=== PATIENT | female | born 1935 | race Caucasian/White ===

== ENCOUNTER 2024-02-28 10:29 | Outpatient (AMB) | payer MEDICARE, SELFPAY ==
--- NOTE | 2024-02-28 09:30 | MHC.PC.OV ---
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 Intake Note: patient here for new patient visit Wholesaler Required: No Is last menstrual period known: No Post menopausal: No Patient : No Allergies bactrum Allergy (Mild, Uncoded 02/28/24 10:41) Unknown losartan Adverse Reaction (Intermediate, Uncoded 02/28/24 10:54) hyperkalemia Tobacco use date assessed: 02/28/24 Fall risk assessment: No Falls in past year Last assessed Fall Risk: 02/28/24 Dental Screening Dental Screen Date: 02/28/24 Did you have a dental visit in the last 12 months?: Yes Did you have a dental problem in the last 6 months where you did not have access to dental care?: No Was dental information given to patient?: Patient has dentist HPI HPI Comments History of Present Illness Details This is an 88-year-old female with a past medical history of invasive ductal carcinoma of the right breast, bilateral PE and left calf DVT anticoagulated on apixaban, hypertension, hyperlipidemia, CKD stage IIIB, peripheral neuropathy, insomnia and glaucoma presenting for follow up. She transferred from my panel at [facility] primary care. The patient was seen at [facility] on 02/20/2024. She presented with left upper extremity pressure in the setting of elevated blood pressure. She had reported some pressure and weakness in her left upper extremity, but at the time her blood pressure was also elevated in the 180s. She got worried and came to the emergency room. The symptoms in her left arm resolved. Notes indicate no EKG changes and no chest pain. Hyperkalemia was reversed with Lokelma. Losartan discontinued, and she was placed on amlodipine. Patient says her smart watch alerted her to a dangerously high heart rate which she would've ignored, but then she checked her blood pressure, and it was elevated in the 180s. Denies paplpitations, chest pain or shortness of breath. She had an echo done at [facility] in June 2023, but she never received the results. This office will request it. 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 Rushing. She is to continue anticoagulation indefinitely. She had right breast cancer in 2018. No known recurrence. Insomnia was treated with trazodone, and she did not tolerate side effects. She does well on Ambien. She sleeps 8-9 hours per night. No side effects to this medication. I reviewed her blood pressure log from home. Her blood pressures have been improving since switching to amlodipine. BP was 129/77 at home today at 7:48am. ROS: Constitutional: No unexplained weight loss, fever, chills, fatigue or night sweats. Eyes: No vision changes, blurry vision, double vision. Respiratory: No shortness of breath, cough or sputum production. Cardiovascular: No chest pain, chest pressure or chest discomfort. No palpitations or pedal edema. Gastrointestinal: No anorexia, nausea, vomiting or diarrhea. No abdominal pain or blood in stool. Genitourinary: No dysuria, hematuria, urinary frequency. Neurologic: No headache, dizziness, syncope, unilateral weakness, ataxia, numbness or tingling in the extremities. Physical exam: Constitutional: Alert, in no distress. Head: Normocephalic. Neck: Supple, Full range of motion. No lymphadenopathy. No palpable thyroid masses. Respiratory: Clear to auscultation. Cardiovascular: S1 S2 regular. No murmurs. Extremities: Warm and well perfused. No clubbing, cyanosis or edema. Psychiatric: Normal mood and affect [facility] Medical History (Updated 02/28/24 @ 11:40 by LYNNE Louis) Hyperkalemia Tachycardia Transient cerebral ischemia Restless legs Postherpetic neuralgia Osteopenia Osteoarthritis Multiple nodules of lung Mitral valve regurgitation Lumbar radiculopathy Insomnia HTN (hypertension) Hyperlipidemia History of DVT of lower extremity Glaucoma Dust allergy Chronic kidney disease, stage 3b Breast cancer, right Atrial septal aneurysm Arthritis Acute pulmonary embolism Surgical History (Updated 02/28/24 @ 11:38 by LYNNE Louis) History of cataract surgery History of hysterectomy History of tonsillectomy History of left hip replacement History of left knee replacement History of lumpectomy of right breast History of right hip replacement History of right knee joint replacement Social History Housing: House Patient Tobacco Use Status: Never used Tobacco e-Cigarette/Vaping Use: Never Used Second Hand Smoke Exposure: No service: No Current occupational status: retired Current occupational exposures/hazards: No Cognitive needs: No Hearing needs: No Vision needs: Yes Questionnaire PHQ-9 Over the last 2 weeks, how often have you been bothered by any of the following problems? 1. Little interest or pleasure in doing things: not at all 2. Feeling down, depressed, or hopeless: not at all 3. Trouble falling or staying asleep, or sleeping too much: several days 4. Feeling tired or having little energy: several days 5. Poor appetite or overeating: not at all 6. Feeling bad about yourself - or that you are a failure or have let yourself or your family down: not at all 7. Trouble concentrating on things, such as reading the newspaper or watching television: not at all 8. Moving or speaking so slowly that other people could have noticed. Or the opposite - being so fidgety or restless that you have been moving around a lot more than usual: not at all 9. Thoughts that you would be better off or of hurting yourself in some way: not at all Total score: 2 90675 - PHQ-9 Billing: Yes Source: Developed by Drs. Israel Perez, Lexi Garcia, Tyrone Valentine and colleagues, with an educational eros from [employer]. Thrive Questionnaire Date Thrive assessed: 02/28/24 I am a: Patient What is your living situation today?: I have a steady place to live Within the past 12 months, did the food you bought not last and you didn't have the money to get more?: Never true Within the past 12 months, did you worry whether your food would run out before you got money to buy more?: Never true Do you have trouble paying for medicines?: No Do you have trouble getting transportation to medical appointments?: No Do you have trouble paying your heating and electricity bill?: No Do you have trouble taking care of your child, family member or friend?: No Do you have trouble with day-to-day activities such as bathing, preparing meals, shopping, managing finances, etc.?: No Are you currently unemployed and looking for a job?: No Are you interested in more education?: No Please select the resources that you would like help with: None Currently or been in a relationship where the following occur: No concerns reported THRIVE Score: 0 AUDIT C Alcohol Use Questionnaire (AUDIT-C) 1. How often do you have a drink containing alcohol?: 2-4 times a month 2. How many drinks containing alcohol do you have on a typical day when you are drinking?: 1 or 2 3. How often do you have six or more drinks on one occasion?: Never Total Score: 2 Score Reviewed/Action Taken: Yes SAÚL-7 AMB Questionnaire SAÚL-7 Date SAÚL - 7 assessed: 02/28/24 Feeling nervous, anxious, or on edge: 0 = Not at all Not being able to stop or control worryin = Not at all Worrying too much about different things: 0 = Not at all Trouble relaxin = Not at all Being so restless that it is hard to sit still: 0 = Not at all Becoming easily annoyed or irritable: 0 = Not at all Feeling afraid as if something awful might happen: 0 = Not at all Total SAÚL-7 score (0-4 normal; 5-9 mild; 10-14 moderate; 15-21 severe): 0 Source: Developed by Drs. Israel Perez, Lexi Garcia, Tyrone Valentine and colleagues, with an educational eros from [employer]. SAÚL-7 Assessment Billing SAÚL-7 Assessment Tool: SAÚL-7 Assessment 24989 Physical exam (Primary Care) Vital Signs: Last Vital Signs Temp 97.5 F 02/28/24 10:49 Pulse 87 02/28/24 10:49 Resp 16 02/28/24 10:49 BP 134/66 02/28/24 10:49 Pulse Ox 97 02/28/24 10:49 Oxygen Delivery Method Room Air 02/28/24 10:49 BMI result Body Mass Index 25.9 Tobacco/Smoking Status: Tobacco use Status Tobacco use date assessed 02/28/24 02/28/24 10:49 Patient Tobacco Use Status Never used Tobacco 02/28/24 10:49 e-Cigarette/Vaping Use Never Used 02/28/24 10:49 PHQ-9: PHQ-9 Score PHQ-9: Total score 2 02/28/24 10:59 Thrive Assessment: Date of Thrive Assessment Date Thrive assessed 02/28/24 02/28/24 10:59 Currently or been in a relationship where the following occur: No concerns reported Coding Level of Care Code Est Pt Level 5 (99708) Complex EM visit Add On G2211 Diagnoses Primary hypertension I10 Hypertension type: primary hypertension History of pulmonary embolism Z86.711 Tachycardia R00.0 Hyperkalemia E87.5 Insomnia G47.00 Hyperlipidemia E78.5 Additional Codes SAÚL-7 Assessment Billing - SAÚL-7 Assessment Tool: SAÚL-7 Assessment [id number] ([id number]) Time Spent (min) 53 Comment Reviewing and updating the medical records, direct patient care, documentation Assessment & Plan Assessment & Plan (1) HTN (hypertension): Code(s): I10 - Essential (primary) hypertension Category: Medical Qualifiers: Hypertension type: primary hypertension Qualified Code(s): I10 - Essential (primary) hypertension Plan: Hypertension Continue amlodipine 10 mg daily. Blood pressure at goal. (2) History of pulmonary embolism: Code(s): Z86.711 - Personal history of pulmonary embolism Category: Medical Plan: Continue Eliquis. Continue anticoagulation indefinitely. (3) Tachycardia: Code(s): R00.0 - Tachycardia, unspecified Category: Medical Plan: Patient says her watch his only recorded 1 such episode of tachycardia, and she did not feel palpitations. I would like her to have a 48 hour Holter monitor to check for atrial fibrillation. Patient in agreement. She would like this done at [facility]. Order faxed. Warning signs warranting re-evaluation at emergency department reviewed. (4) Hyperkalemia: Code(s): E87.5 - Hyperkalemia Category: Medical Plan: Recheck potassium. Remain off losartan. (5) Insomnia: Code(s): G47.00 - Insomnia, unspecified Category: Medical Plan: Continue Ambien 5 mg nightly. (6) Hyperlipidemia: Code(s): E78.5 - Hyperlipidemia, unspecified Category: Medical Plan: Continue rosuvastatin. Plan Follow up in 8 weeks. Orders: Orders Basic Metabolic Panel Today N18.32 - Chronic kidney disease, stage 3b ECG holter monitor 48 hour Today R00.0 - Tachycardia, unspecified Medications: New amlodipine 10 mg PO DAILY 90 tabs 3RF zolpidem 5 mg PO BEDTIME PRN 30 tabs 0RF insomnia
[2024-02-28 10:49] VITALS: BP 134/66; PULSE 87; RESP 16; TEMP 36.4; O2SAT 97; BMI 25.9
== END 2024-02-28 11:30 | disposition home or self-care (01) ==
PROVIDERS: PCP Physician Assistant Medical; Visit Provider Physician Assistant Medical
DX: I10 Essential (primary) hypertension (principal); Z86.711 Personal history of pulmonary embolism; R00.0 Tachycardia, unspecified; E87.5 Hyperkalemia; G47.00 Insomnia, unspecified; E78.5 Hyperlipidemia, unspecified

== ENCOUNTER → 2024-02-28 10:29 | Outpatient (BNVA) | payer MEDICARE, SELFPAY | PROVIDERS: PCP Physician Assistant Medical; Visit Provider Physician Assistant Medical ==

== ENCOUNTER 2024-02-28 11:37 | Outpatient (REF) | payer MEDICARE, SELFPAY ==
[2024-02-28 14:30] LABS: Anion Gap 11 (12-20); Blood Urea Nitrogen 19 mg/dL (9-16); Calcium 10.5 mg/dL (8.4-10.2); Carbon Dioxide 22 mmol/L (22-29); Chloride 111 mmol/L (96-108); Estimated Glomerular Filt Rate 53; Glucose Random 99 mg/dL (60-115); Potassium 4.4 mmol/L (3.3-5.1); Sodium 140 mmol/L (135-145)
== END 2024-02-28 11:38 | disposition home or self-care (01) ==
LOC: HO.WFDLDS 11:37
PROVIDERS: Visit Provider Physician Assistant Medical
DX: I12.9 Hypertensive chronic kidney disease with stage 1 through stage 4 chronic kidney disease, or unspecified chronic kidney disease (principal); N18.32 Chronic kidney disease, stage 3b; R00.0 Tachycardia, unspecified; E87.5 Hyperkalemia; G47.00 Insomnia, unspecified; E78.5 Hyperlipidemia, unspecified; Z86.711 Personal history of pulmonary embolism; Z79.01 Long term (current) use of anticoagulants; Z79.899 Other long term (current) drug therapy
CPT/HCPCS: 36415; 80048; 96127; 99212

== ENCOUNTER 2024-03-31 14:24 | Outpatient (AMB) | payer MEDICARE, SELFPAY ==
--- NOTE | 2024-03-31 14:49 | MHC.PC.OV ---
Vital Signs 03/31/24 14:53 Height 5 ft 7 in Weight 164 lb BMI 25.7 BP 136/72 Blood Pressure Location Lt brachial Position Sitting Pulse 69 Pulse Source Pulse Oximeter Pulse Oximetry (%) 99 Oxygen Delivery Method Room Air Intake Visit Reasons: Both feet swollen Intake Note: Bilateral leg swelling for a week or more. More on the left. Allergies bactrum Allergy (Mild, Uncoded 03/31/24 14:50) Unknown losartan Adverse Reaction (Intermediate, Uncoded 03/31/24 14:50) hyperkalemia Tobacco use date assessed: 02/28/24 Fall risk assessment: No Falls in past year Last assessed Fall Risk: 03/31/24 Dental Screening Dental Screen Date: 02/28/24 HPI HPI Comments History of Present Illness Details This is an 88-year-old female with a past medical history of invasive ductal carcinoma of the right breast, bilateral PE and left calf DVT anticoagulated on apixaban, hypertension, hyperlipidemia, CKD stage IIIB, peripheral neuropathy, insomnia and glaucoma presenting for lower extremity swelling. The patient says she thinks the amlodipine that she started at the end of January is causing swelling in her feet and lower legs. She has noticed it more within the past week and a half. It is not painful except in the morning it feels uncomfortable and sometimes throbs. She says it looks the same on both sides. She is drinking a lot of water. She follows a sodium restricted diet. She is trying to elevate her legs. She has no calf pain/redness. She has been taking her Eliquis every day as prescribed. She denies chest pain, cough or shortness of breath. There is some bruising for the last week on her left lower leg. It is not painful. She thinks she may have bumped it in bed. It is fading. As you recall she was seen at [facility] on 02/20/2024. She presented with left upper extremity pressure in the setting of elevated blood pressure. She had reported some pressure and weakness in her left upper extremity, but at the time her blood pressure was also elevated in the 180s. Notes indicate dno EKG changes and no chest pain. She was found to be hyperkalemic which was reversed with Lokelma. Losartan discontinued, and she was placed on amlodipine. Patient was previously on a thiazide diuretic which was discontinued when blood pressure was well-controlled. Patient had an echocardiogram done at [facility] in June of 2023 which demonstrated a normal ejection fraction of 60-65% and indeterminate diastolic function. 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 Rushing. She is to continue anticoagulation indefinitely. She had right breast cancer in 2018. No known recurrence. Insomnia was treated with trazodone, and she did not tolerate side effects. She does well on Ambien. She sleeps 8-9 hours per night. No side effects to this medication. ROS: Constitutional: No unexplained weight loss, fever, chills, fatigue or night sweats. Eyes: No vision changes, blurry vision, double vision. Respiratory: No shortness of breath, cough or sputum production. Cardiovascular: No chest pain, chest pressure or chest discomfort. No palpitations. Gastrointestinal: No anorexia, nausea, vomiting or diarrhea. No abdominal pain or blood in stool. Genitourinary: No dysuria, hematuria, urinary frequency. Neurologic: No headache, dizziness, syncope, unilateral weakness, ataxia, numbness or tingling in the extremities. Physical exam: Constitutional: Alert, in no distress. Head: Normocephalic. Neck: Supple, Full range of motion. No lymphadenopathy. No palpable thyroid masses. Respiratory: Clear to auscultation. Cardiovascular: S1 S2 regular. No murmurs. Extremities: No clubbing or cyanosis. DP pulses palpable bilaterally. The feet are neurovascularly intact. Patient has 1+ bilateral edema of the toes and ankles and pretibial areas. On the left anteromedial aspect of the lower chiu there is a large area of fading ecchymosis and slight erythema both of which have been improving over the course of the past week per patient. No calor. There is a small 1 cm dry area on the left lower leg. Psychiatric: Normal mood and affect [facility] Medical History (Updated 03/31/24 @ 16:56 by LYNNE Louis) Bilateral lower extremity edema Serum calcium elevated Hyperkalemia Tachycardia Transient cerebral ischemia Restless legs Postherpetic neuralgia Osteopenia Osteoarthritis Multiple nodules of lung Mitral valve regurgitation Lumbar radiculopathy Insomnia HTN (hypertension) Hyperlipidemia History of DVT of lower extremity Glaucoma Dust allergy Chronic kidney disease, stage 3b Breast cancer, right Atrial septal aneurysm Arthritis Acute pulmonary embolism Surgical History (Updated 02/28/24 @ 11:38 by LYNNE Louis) History of cataract surgery History of hysterectomy History of tonsillectomy History of left hip replacement History of left knee replacement History of lumpectomy of right breast History of right hip replacement History of right knee joint replacement Social History Housing: House Patient Tobacco Use Status: Never used Tobacco e-Cigarette/Vaping Use: Never Used Second Hand Smoke Exposure: No service: No Current occupational status: retired Current occupational exposures/hazards: No Cognitive needs: No Hearing needs: No Vision needs: Yes Questionnaire PHQ-9 Over the last 2 weeks, how often have you been bothered by any of the following problems? 1. Little interest or pleasure in doing things: not at all 2. Feeling down, depressed, or hopeless: not at all 3. Trouble falling or staying asleep, or sleeping too much: not at all 4. Feeling tired or having little energy: several days 5. Poor appetite or overeating: not at all 6. Feeling bad about yourself - or that you are a failure or have let yourself or your family down: not at all 7. Trouble concentrating on things, such as reading the newspaper or watching television: not at all 8. Moving or speaking so slowly that other people could have noticed. Or the opposite - being so fidgety or restless that you have been moving around a lot more than usual: not at all 9. Thoughts that you would be better off or of hurting yourself in some way: not at all Total score: 1 Source: Developed by Drs. Israel Perez, Lexi Garcia, Tyrone Valentine and colleagues, with an educational eros from [email or web address]. Thrive Questionnaire Date Thrive assessed: 02/28/24 I am a: Patient What is your living situation today?: I have a steady place to live Within the past 12 months, did the food you bought not last and you didn't have the money to get more?: Never true Within the past 12 months, did you worry whether your food would run out before you got money to buy more?: Never true Do you have trouble paying for medicines?: No Do you have trouble getting transportation to medical appointments?: No Do you have trouble paying your heating and electricity bill?: No Do you have trouble taking care of your child, family member or friend?: No Do you have trouble with day-to-day activities such as bathing, preparing meals, shopping, managing finances, etc.?: No Are you currently unemployed and looking for a job?: No Are you interested in more education?: No Please select the resources that you would like help with: None Currently or been in a relationship where the following occur: No concerns reported THRIVE Score: 0 AUDIT C Alcohol Use Questionnaire (AUDIT-C) 1. How often do you have a drink containing alcohol?: Monthly or less 2. How many drinks containing alcohol do you have on a typical day when you are drinking?: 1 or 2 3. How often do you have six or more drinks on one occasion?: Never Total Score: 1 SAÚL-7 AMB Questionnaire SAÚL-7 Date SAÚL - 7 assessed: 02/28/24 Feeling nervous, anxious, or on edge: 0 = Not at all Not being able to stop or control worryin = Not at all Worrying too much about different things: 0 = Not at all Trouble relaxin = Not at all Being so restless that it is hard to sit still: 0 = Not at all Becoming easily annoyed or irritable: 0 = Not at all Feeling afraid as if something awful might happen: 0 = Not at all Total SAÚL-7 score (0-4 normal; 5-9 mild; 10-14 moderate; 15-21 severe): 0 Source: Developed by Drs. Israel Perez, Lexi Garcia, Tyrone Valentine and colleagues, with an educational eros from [email or web address]. Physical exam (Primary Care) Vital Signs: Last Vital Signs Pulse 69 03/31/24 14:53 BP 136/72 03/31/24 14:53 Pulse Ox 99 03/31/24 14:53 Oxygen Delivery Method Room Air 03/31/24 14:53 BMI result Body Mass Index 25.7 Tobacco/Smoking Status: Tobacco use Status Tobacco use date assessed 02/28/24 03/31/24 14:54 Patient Tobacco Use Status Never used Tobacco 03/31/24 14:54 e-Cigarette/Vaping Use Never Used 03/31/24 14:54 PHQ-9: PHQ-9 Score PHQ-9: Total score 1 03/31/24 14:54 Thrive Assessment: Date of Thrive Assessment Date Thrive assessed 02/28/24 03/31/24 14:54 Currently or been in a relationship where the following occur: No concerns reported Coding Level of Care Code Est Pt Level 4 (09233) Complex EM visit Add On G2211 Diagnoses Chronic kidney disease, stage 3b N18.32 Bilateral lower extremity edema R60.0 Serum calcium elevated E83.52 Assessment & Plan Assessment & Plan (1) Chronic kidney disease, stage 3b: Code(s): N18.32 - Chronic kidney disease, stage 3b Category: Medical (2) Bilateral lower extremity edema: Code(s): R60.0 - Localized edema Category: Medical (3) Serum calcium elevated: Code(s): E83.52 - Hypercalcemia Category: Medical Plan The patient's lungs are clear and she has no cardiopulmonary symptoms to suggest CHF. Echo within the last year demonstrated normal left ventricular ejection fraction. Symptoms are bilateral, there is no calf pain or redness, and she states she has been 100% compliant with Eliquis therefore lower extremity DVT very unlikely. Patient says this has occurred since starting amlodipine, and lower extremity is a known side effect of the medication. Recommended elevating extremities, following a low-sodium diet and she can use compression stockings. Patient may have some venous insufficiency as well. She had mild hypercalcemia with last labs. I will have her repeat renal function and calcium today. We discussed decreasing amlodipine to 5 mg from 10 mg and adding chlorthalidone depending on lab results. If she has persistent hypercalcemia we could also decrease amlodipine and add a low-dose beta tom. Side effects of beta-blockers reviewed. I will follow up with her tomorrow once I have the results. I will also check vitamin-D and PTH given previously elevated calcium level. Warning signs warranting ER evaluation reviewed with the patient. She verbalizes understanding. Orders: Orders Basic Metabolic Panel Today E83.52 - Hypercalcemia Medications: New rosuvastatin 10 mg PO DAILY 90 tabs 3RF
[2024-03-31 14:53] VITALS: BP 136/72; PULSE 69; O2SAT 99; BMI 25.7
== END 2024-03-31 16:52 | disposition home or self-care (01) ==
LOC: HO.HMCFM 14:25
PROVIDERS: PCP Physician Assistant Medical; Visit Provider Physician Assistant Medical
DX: N18.32 Chronic kidney disease, stage 3b (principal); R60.0 Localized edema; E83.52 Hypercalcemia

== ENCOUNTER 2024-03-31 15:34 | Outpatient (REF) | payer MEDICARE, SELFPAY ==
[2024-03-31 18:25] LABS: Anion Gap 14 (12-20); Blood Urea Nitrogen 16 mg/dL (9-16); Calcium 9.9 mg/dL (8.4-10.2); Carbon Dioxide 22 mmol/L (22-29); Chloride 111 mmol/L (96-108); Estimated Glomerular Filt Rate 42; Glucose Random 98 mg/dL (60-115); Potassium 4.1 mmol/L (3.3-5.1); Sodium 143 mmol/L (135-145)
[2024-04-01 05:27] LABS: Parathyroid Hormone Intact 122.1 pg/mL (8.7-77.1)
[2024-04-04 18:28] LABS: VITAMIN D (1,25 OH) D3 56 pg/mL; Vit D (1,25-Dihydroxy) Total 56 pg/mL (18-72); Vitamin D (1,25 OH) D2 <8 pg/mL
== END 2024-03-31 15:35 | disposition home or self-care (01) ==
LOC: HO.WFDLDS 15:34
PROVIDERS: Visit Provider Physician Assistant Medical
DX: E83.52 Hypercalcemia (principal); N18.32 Chronic kidney disease, stage 3b; R60.0 Localized edema
CPT/HCPCS: 36415; 80048; 82652; 83970; 99212

== ENCOUNTER 2024-04-21 10:17 | Outpatient (AMB) | payer MEDICARE, SELFPAY ==
--- NOTE | 2024-04-21 10:34 | MHC.PC.OV ---
Vital Signs 04/21/24 10:37 Height 5 ft 7 in Weight 163 lb 2 oz BMI 25.5 BP 135/63 Blood Pressure Location Rt brachial Position Sitting Respiration 16 Pulse 68 Pulse Source Pulse Oximeter Temp 97.2 F Temp Source Temporal Artery Scan Pulse Oximetry (%) 98 Oxygen Delivery Method Room Air Intake Visit Reasons: 8 week follow up holter monitor Intake Note: patient here for 8 wks follow up on halter monitor [employer] Required: No Is last menstrual period known: No Post menopausal: No Patient : No Allergies bactrum Allergy (Mild, Uncoded 03/31/24 14:50) Unknown losartan Adverse Reaction (Intermediate, Uncoded 03/31/24 14:50) hyperkalemia Tobacco use date assessed: 04/21/24 Fall risk assessment: No Falls in past year Last assessed Fall Risk: 04/21/24 Dental Screening Dental Screen Date: 04/21/24 Did you have a dental visit in the last 12 months?: Yes Did you have a dental problem in the last 6 months where you did not have access to dental care?: No Was dental information given to patient?: Patient has dentist HPI HPI Comments History of Present Illness Details This is an 89-year-old female with a past medical history of invasive ductal carcinoma of the right breast, bilateral PE and left calf DVT anticoagulated on apixaban, hypertension, hyperlipidemia, CKD stage IIIB, peripheral neuropathy, insomnia and glaucoma presenting for follow up. Hypertension-we adjusted her medication recently. She is taking amlodipine 5 mg daily and carvedilol 3.125 mg twice daily. She denies side effects on carvedilol. The patient says her leg swelling went away after she decrease the dose of amlodipine. Patient has noticed some bruising around her ankles just today. When we looked at it it is in the exact distribution where her legs cross, and she says she sits like this frequently at home. She brought a list of her home blood pressure readings with her today: March 26 108/66 March 28 121/70 March 29 121/67 April 01 115/70 April 03 120/73 April 04 125/64 April 05 120/76 April 08 124/79 April 09 125/70 April 11 124/76 April 15 129/73 April 16 130/73 April 17 128/71 April 18 127/76 April 19 120/April 20 131/70 As you recall she was seen at [facility] on 02/20/2024. She presented with left upper extremity pressure in the setting o elevated blood pressure. She had reported some pressure and weakness in her left upper extremity, but at the time her blood pressure was also elevated in the 180s. Notes indicated no EKG changes and no chest pain. She was found to be hyperkalemic which was reversed with Lokelma. Losartan discontinued, and she was placed on amlodipine. Patient was previously on a thiazide diuretic which was discontinued when blood pressure was well-controlled. Patient had an echocardiogram done at [facility] in June of 2023 which demonstrated a normal ejection fraction of 60-65% and indeterminate diastolic function. We reviewed her lab work which showed recently elevated PTH, calcium normalized, normal vitamin-D and decreased renal function. 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 Rushing. She is to continue anticoagulation indefinitely. She had right breast cancer in 2018. No known recurrence. Insomnia was treated with trazodone, and she did not tolerate side effects. She does well on Ambien. She sleeps 8-9 hours per night. No side effects to this medication. ROS: Constitutional: No unexplained weight loss, fever, chills, fatigue or night sweats. Eyes: No vision changes, blurry vision, double vision. Respiratory: No shortness of breath, cough or sputum production. Cardiovascular: No chest pain, chest pressure or chest discomfort. No palpitations. Gastrointestinal: No anorexia, nausea, vomiting or diarrhea. No abdominal pain or blood in stool. Genitourinary: No dysuria, hematuria, urinary frequency. Neurologic: No headache, dizziness, syncope, unilateral weakness, ataxia, numbness or tingling in the extremities. Physical exam: Constitutional: Alert, in no distress. Head: Normocephalic. Neck: Supple, Full range of motion. No lymphadenopathy. No palpable thyroid masses. Respiratory: Clear to auscultation. Cardiovascular: S1 S2 regular. No murmurs. Extremities: No clubbing or cyanosis. DP pulses palpable bilaterally. The feet are neurovascularly intact. Trace bilateral lower extremity edema. Ecchymosis on anteromedial aspect of the right lower leg and anterior left lower chiu. [facility] Medical History (Updated 03/31/24 @ 16:56 by LYNNE Louis) Bilateral lower extremity edema Serum calcium elevated Hyperkalemia Tachycardia Transient cerebral ischemia Restless legs Postherpetic neuralgia Osteopenia Osteoarthritis Multiple nodules of lung Mitral valve regurgitation Lumbar radiculopathy Insomnia HTN (hypertension) Hyperlipidemia History of DVT of lower extremity Glaucoma Dust allergy Chronic kidney disease, stage 3b Breast cancer, right Atrial septal aneurysm Arthritis Acute pulmonary embolism Surgical History (Updated 02/28/24 @ 11:38 by LYNNE Louis) History of cataract surgery History of hysterectomy History of tonsillectomy History of left hip replacement History of left knee replacement History of lumpectomy of right breast History of right hip replacement History of right knee joint replacement Social History Housing: House Patient Tobacco Use Status: Never used Tobacco e-Cigarette/Vaping Use: Never Used Second Hand Smoke Exposure: No service: No Current occupational status: retired Current occupational exposures/hazards: No Cognitive needs: No Hearing needs: No Vision needs: Yes Questionnaire Thrive Questionnaire Date Thrive assessed: 03/31/24 I am a: Patient What is your living situation today?: I have a steady place to live Within the past 12 months, did the food you bought not last and you didn't have the money to get more?: Never true Within the past 12 months, did you worry whether your food would run out before you got money to buy more?: Never true Do you have trouble paying for medicines?: No Do you have trouble getting transportation to medical appointments?: No Do you have trouble paying your heating and electricity bill?: No Do you have trouble taking care of your child, family member or friend?: No Do you have trouble with day-to-day activities such as bathing, preparing meals, shopping, managing finances, etc.?: No Are you currently unemployed and looking for a job?: No Are you interested in more education?: No Please select the resources that you would like help with: None Currently or been in a relationship where the following occur: No concerns reported THRIVE Score: 0 SAÚL-7 AMB Questionnaire SAÚL-7 Date SAÚL - 7 assessed: 02/28/24 Source: Developed by Drs. Israel Perez, Lexi Garcia, Tyrone Valentine and colleagues, with an educational eros from [employer] Physical exam (Primary Care) Vital Signs: Last Vital Signs Temp 97.2 F 04/21/24 10:37 Pulse 68 04/21/24 10:37 Resp 16 04/21/24 10:37 BP 135/63 04/21/24 10:37 Pulse Ox 98 04/21/24 10:37 Oxygen Delivery Method Room Air 04/21/24 10:37 BMI result Body Mass Index 25.5 Tobacco/Smoking Status: Tobacco use Status Tobacco use date assessed 04/21/24 04/21/24 10:40 Patient Tobacco Use Status Never used Tobacco 04/21/24 10:36 e-Cigarette/Vaping Use Never Used 04/21/24 10:36 Thrive Assessment: Date of Thrive Assessment Date Thrive assessed 03/31/24 04/21/24 10:36 Currently or been in a relationship where the following occur: No concerns reported Coding Level of Care Code Est Pt Level 4 (02092) Complex EM visit Add On G2211 Diagnoses Chronic kidney disease, stage 3b N18.32 Bilateral lower extremity edema R60.0 Assessment & Plan Assessment & Plan (1) Chronic kidney disease, stage 3b: Code(s): N18.32 - Chronic kidney disease, stage 3b Category: Medical (2) Bilateral lower extremity edema: Code(s): R60.0 - Localized edema Category: Medical Plan Patient will continue her current regimen of carvedilol and amlodipine. Her home blood pressure readings are at goal. Patient has lower extremity edema resolved after decreasing her dose of amlodipine. We discussed easy bruising is common on anticoagulation. She will try to avoid keeping her legs crossed at the ankles to decrease bruising. Reviewed elevated PTH, previously elevated calcium level and decreased GFR with patient. I recommended nephrology/endo consult. Patient declined at this time. Patient agreeable to rechecking labs. She plans to do this after the holidays. Patient has Holter monitor pending. Warning signs warranting ER evaluation reviewed. Continue zolpidem for insomnia. Refill given. Follow up in office in 6 months. Orders: Orders Complete Blood Count Auto Diff 6 Months E78.5 - Hyperlipidemia, unspecified, E83.52 - Hypercalcemia, E87.5 - Hyperkalemia, I10 - Essential (primary) hypertension, R60.0 - Localized edema Comprehensive Met. Panel 6 Months E78.5 - Hyperlipidemia, unspecified, E83.52 - Hypercalcemia, E87.5 - Hyperkalemia, I10 - Essential (primary) hypertension, R60.0 - Localized edema Parathyroid Hormone Intact 6 Months E78.5 - Hyperlipidemia, unspecified, E83.52 - Hypercalcemia, E87.5 - Hyperkalemia, I10 - Essential (primary) hypertension, R60.0 - Localized edema Vitamin D 1,25 dihydroxy 6 Months E78.5 - Hyperlipidemia, unspecified, E83.52 - Hypercalcemia, E87.5 - Hyperkalemia, I10 - Essential (primary) hypertension, R60.0 - Localized edema Lipid Panel 6 Months E78.5 - Hyperlipidemia, unspecified, E83.52 - Hypercalcemia, E87.5 - Hyperkalemia, I10 - Essential (primary) hypertension, R60.0 - Localized edema Medications: Refilled zolpidem 5 mg PO BEDTIME PRN 30 tabs 3RF insomnia carvedilol must administer with a meal/food 3.125 mg PO BID 180 tabs 3RF
[2024-04-21 10:37] VITALS: BP 135/63; PULSE 68; RESP 16; TEMP 36.2; O2SAT 98; BMI 25.5
== END 2024-04-21 11:26 | disposition home or self-care (01) ==
PROVIDERS: PCP Physician Assistant Medical; Visit Provider Physician Assistant Medical
DX: N18.32 Chronic kidney disease, stage 3b (principal); R60.0 Localized edema

== ENCOUNTER → 2024-04-21 10:17 | Outpatient (BNVA) | payer MEDICARE, SELFPAY | PROVIDERS: PCP Physician Assistant Medical; Visit Provider Physician Assistant Medical | DX: N18.32 Chronic kidney disease, stage 3b (principal); R60.0 Localized edema | CPT/HCPCS: 99212 ==

== ENCOUNTER 2024-10-23 09:46 | Outpatient (AMB) | payer MEDICARE, SELFPAY ==
--- NOTE | 2024-10-23 09:56 | A.OFFPC_ITS ---
Vital Signs 10/23/24 10:02 Height 5 ft 7 in Weight 151 lb 8 oz BMI 23.7 BP 118/70 Blood Pressure Location Lt brachial Position Sitting Pulse 63 Pulse Source Pulse Oximeter Temp 98.4 F Temp Source Temporal Artery Scan Pulse Oximetry (%) 98 Oxygen Delivery Method Room Air Intake Visit Reasons: Follow up Halter monitor Intake Note: Oxana presents in the office today to follow up on the Holter monitor. Allergies bactrum Allergy (Mild, Uncoded 10/23/24 09:59) Unknown losartan Adverse Reaction (Intermediate, Uncoded 10/23/24 09:59) hyperkalemia Tobacco use date assessed: 10/23/24 Fall risk assessment: 2 + Falls in past year Last assessed Fall Risk: 10/23/24 Dental Screening Dental Screen Date: 10/23/24 Did you have a dental visit in the last 12 months?: Yes Did you have a dental problem in the last 6 months where you did not have access to dental care?: No Was dental information given to patient?: Patient has dentist HPI HPI Comments History of Present Illness Details This is an 89-year-old female with a past medical history of invasive ductal carcinoma of the right breast, bilateral PE and left calf DVT anticoagulated on apixaban, hypertension, hyperlipidemia, CKD stage IIIB, peripheral neuropathy, insomnia and glaucoma presenting for follow up. The patient broke her proximal right clavicle in July. CT demonstrated fracture and small hematoma but no evidence of osteolytic lesions ( ER note reviewed). She has a remote history of breast cancer. This was after a file cabinet fell on top of arm. There was no loss of consciousness. Patient followed by [facility]. She is starting physical therapy. Bone density exam was ordered, but patient says she was not called to schedule this. My medical claims analyst took care of this today by resending the order. Hypertension-she is taking amlodipine 5 mg daily and carvedilol 3.125 mg twice daily. Patient had an echocardiogram done at [facility] in June of 2023 which demonstrated a normal ejection fraction of 60-65% and indeterminate diastolic function. We reviewed her lab work Again today which showed recently elevated PTH, calcium normalized, normal vitamin-D and decreased renal function. She has orders to repeat labs. she did not have them done yet. She previously declined referral to Nephrology. 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 Rushing. She is to continue anticoagulation indefinitely. She had right breast cancer in 2018. No known recurrence. Saw Dr. Rushing for this. She has annual mammograms with [facility] on [address]. Insomnia was treated with trazodone, and she did not tolerate side effects. She does well on Ambien. She sleeps 8-9 hours per night. No side effects to this medication. ROS: Constitutional: No unexplained weight loss, fever, chills, fatigue or night sweats. Eyes: No vision changes, blurry vision, double vision. Respiratory: No shortness of breath, cough or sputum production. Cardiovascular: No chest pain, chest pressure or chest discomfort. No palpitations. Gastrointestinal: No anorexia, nausea, vomiting or diarrhea. No abdominal pain or blood in stool. Genitourinary: No dysuria, hematuria, urinary frequency. Neurologic: No headache, dizziness, syncope, unilateral weakness, ataxia, numbness or tingling in the extremities. Physical exam: Constitutional: Alert, in no distress. Head: Normocephalic. Neck: Supple, Full range of motion. No lymphadenopathy. No palpable thyroid masses. Respiratory: Clear to auscultation. Cardiovascular: S1 S2 regular. No murmurs. Clavicles: No palpable tenderness or deformity. Extremities: No clubbing or cyanosis. Trace bilateral lower extremity edema. [facility] Medical History (Updated 10/24/24 @ 10:03 by LYNNE Louis) Right clavicle fracture Bilateral lower extremity edema Serum calcium elevated Hyperkalemia Tachycardia Transient cerebral ischemia Restless legs Postherpetic neuralgia Osteopenia Osteoarthritis Multiple nodules of lung Mitral valve regurgitation Lumbar radiculopathy Insomnia HTN (hypertension) Hyperlipidemia History of DVT of lower extremity Glaucoma Dust allergy Chronic kidney disease, stage 3b Breast cancer, right Atrial septal aneurysm Arthritis Acute pulmonary embolism Surgical History (Updated 02/28/24 @ 11:38 by LYNNE Louis) History of cataract surgery History of hysterectomy History of tonsillectomy History of left hip replacement History of left knee replacement History of lumpectomy of right breast History of right hip replacement History of right knee joint replacement Social History (Updated 10/23/24 @ 10:02 by Nikki Mcgowan MA) Housing: House Alcohol intake: current Patient Tobacco Use Status: Never used Tobacco e-Cigarette/Vaping Use: Never Used Second Hand Smoke Exposure: No service: No Current occupational status: retired Current occupational exposures/hazards: No Cognitive needs: No Hearing needs: No Vision needs: Yes Questionnaire PHQ-9 Over the last 2 weeks, how often have you been bothered by any of the following problems? 1. Little interest or pleasure in doing things: not at all 2. Feeling down, depressed, or hopeless: not at all 4. Feeling tired or having little energy: not at all 5. Poor appetite or overeating: not at all 6. Feeling bad about yourself - or that you are a failure or have let yourself or your family down: not at all 7. Trouble concentrating on things, such as reading the newspaper or watching television: not at all 8. Moving or speaking so slowly that other people could have noticed. Or the opposite - being so fidgety or restless that you have been moving around a lot more than usual: not at all 9. Thoughts that you would be better off or of hurting yourself in some way: not at all Source: Developed by Drs. Israel Perez, Lexi Garcia, Tyrone Valentine and colleagues, with an educational eros from [employer]. Thrive Questionnaire Date Thrive assessed: 10/16/24 I am a: Patient What is your living situation today?: I have a steady place to live Within the past 12 months, did the food you bought not last and you didn't have the money to get more?: Never true Within the past 12 months, did you worry whether your food would run out before you got money to buy more?: Never true Do you have trouble paying for medicines?: No Do you have trouble getting transportation to medical appointments?: No Do you have trouble paying your heating and electricity bill?: I choose not to answer this question Do you have trouble taking care of your child, family member or friend?: I choose not to answer this question Do you have trouble with day-to-day activities such as bathing, preparing meals, shopping, managing finances, etc.?: No Are you currently unemployed and looking for a job?: No Are you interested in more education?: No Please select the resources that you would like help with: None Currently or been in a relationship where the following occur: I choose not to answer THRIVE Score: 0 AUDIT C Alcohol Use Questionnaire (AUDIT-C) 1. How often do you have a drink containing alcohol?: Monthly or less 2. How many drinks containing alcohol do you have on a typical day when you are drinking?: 1 or 2 3. How often do you have six or more drinks on one occasion?: Never Total Score: 1 SAÚL-7 AMB Questionnaire SAÚL-7 Date SAÚL - 7 assessed: 02/28/24 Feeling nervous, anxious, or on edge: 0 = Not at all Not being able to stop or control worryin = Not at all Worrying too much about different things: 0 = Not at all Trouble relaxin = Not at all Being so restless that it is hard to sit still: 0 = Not at all Becoming easily annoyed or irritable: 0 = Not at all Feeling afraid as if something awful might happen: 0 = Not at all Total SAÚL-7 score (0-4 normal; 5-9 mild; 10-14 moderate; 15-21 severe): 0 Source: Developed by Drs. Israel Perez, Lexi Garcia, Tyrone Valentine and colleagues, with an educational eros from [employer]. Physical exam (Primary Care) Vital Signs: Last Vital Signs Temp 98.4 F 10/23/24 10:02 Pulse 63 10/23/24 10:02 BP 118/70 10/23/24 10:02 Pulse Ox 98 10/23/24 10:02 Oxygen Delivery Method Room Air 10/23/24 10:02 BMI result Body Mass Index 23.7 Tobacco/Smoking Status: Tobacco use Status Tobacco use date assessed 10/23/24 10/23/24 10:02 Patient Tobacco Use Status Never used Tobacco 10/23/24 10:02 e-Cigarette/Vaping Use Never Used 10/23/24 10:02 Thrive Assessment: Date of Thrive Assessment Date Thrive assessed 10/16/24 10/23/24 09:58 Currently or been in a relationship where the following occur: I choose not to answer Coding Level of Care Code Est Pt Level 4 (03915) Complex EM visit Add On G2211 Diagnoses History of pulmonary embolism Z86.711 Breast cancer, right C50.911 Primary hypertension I10 Hypertension type: primary hypertension Osteopenia M85.80 Right clavicle fracture S42.001A Serum calcium elevated E83.52 Insomnia G47.00 Assessment & Plan Assessment & Plan (1) History of pulmonary embolism: Code(s): Z86.711 - Personal history of pulmonary embolism Category: Medical Plan: On anticoagulation indefinitely. (2) Breast cancer, right: Comment: Invasive ductal carcinoma Code(s): C50.911 - Malignant neoplasm of unspecified site of right female breast Category: Medical Plan: Continue annual mammograms. (3) HTN (hypertension): Code(s): I10 - Essential (primary) hypertension Category: Medical Qualifiers: Hypertension type: primary hypertension Qualified Code(s): I10 - Essential (primary) hypertension Plan: Controlled. Continue current regimen. (4) Osteopenia: Code(s): M85.80 - Other specified disorders of bone density and structure, unspecified site Category: Medical Plan: Bone density test ordered. (5) Right clavicle fracture: Code(s): S42.001A - Fracture of unspecified part of right clavicle, initial encounter for closed fracture Category: Medical Plan: She is starting physical therapy with [facility]. (6) Serum calcium elevated: Code(s): E83.52 - Hypercalcemia Category: Medical Plan: The patient was given lab orders and we fax them again to the lab of her choice. Advised patient to call the office if she does not hear about test results 1 week after having them drawn. (7) Insomnia: Code(s): G47.00 - Insomnia, unspecified Category: Medical Plan: Continue Zolpidem. Plan follow up in 4 months.
[2024-10-23 10:02] VITALS: BP 118/70; PULSE 63; TEMP 36.9; O2SAT 98; BMI 23.7
--- OUTSIDE RECORDS SUMMARY | 2024-10-23 10:07 | XMS_ITS | Data Portability ---
Author Organization [facility], PAIN OFFICE Address [address],[facility] [address] [place] [address] Care Team Providers Care Account Services Specialist Name Role Phone MALACHI WAHL Referring Provider CAITY CASTRO Primary Care Provider [phone] Assessment Encounter Date Assessment Date Assessment LastModified by Organization Details LastModified Time 09/13/2023 09/13/2023 Oxana Newell is a 88 year old woman with complaints of low back pain radiating into right lower extremity with numbness and weakness. She has had physical therapy with persistent pain. On exam, she has pain on flexion and a positive straight leg raising test on the right. MRI Lumbar spine shows multiple levels of lumbar spondylosis . Especially, L2-L3 level has a large extruded disc with inferior migration. 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 Repeat Lumbar epidural steroid injections under fluoroscopic guidance was recommended. The risks and benefits of the procedure were discussed in detail. She wishes to proceed. An appointment will be booked for the same. She needs a chassis driver on the day of the procedure. She is on eliquis and needs to stop it for three days prior to the procedure. She can stop per her PCP. [email or web address] Not available 09/13/2023 14:36:42 09/18/2023 09/18/2023 Oxana Newell is a 88 year old woman with complaints of low back pain radiating into right lower extremity with numbness and weakness. She has had physical therapy with persistent pain. On exam, she has pain on flexion and a positive straight leg raising test on the right. MRI Lumbar spine shows multiple levels of lumbar spondylosis . Especially, L2-L3 level has a large extruded disc with inferior migration. 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 She is here for a Lumbar epidural steroid injection under fluoroscopic guidance . The risks and benefits of the procedure were discussed in detail. She wishes to proceed. She can follow up for a repeat injection in three months. [email or web address] Not available 09/18/2023 10:03:10 01/02/2024 01/02/2024 Oxana Newell is a 88 year old woman with complaints of low back pain radiating into right lower extremity with numbness and weakness. She has had physical therapy with persistent pain. On exam, she has pain on flexion and a positive straight leg raising test on the right. MRI Lumbar spine shows multiple levels of lumbar spondylosis . Especially, L2-L3 level has a large extruded disc with inferior migration. 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 She is here for a Lumbar epidural steroid injection under fluoroscopic guidance . The risks and benefits of the procedure were discussed in detail. She wishes to proceed. She can follow up for a repeat injection in three months. [email or web address] Not available 01/02/2024 09:04:58 04/15/2024 04/15/2024 Oxana Newell is a 89 year old woman with complaints of low back pain radiating into right lower extremity with numbness and weakness. She has had physical therapy with persistent pain. On exam, she has pain on flexion and a positive straight leg raising test on the right. MRI Lumbar spine shows multiple levels of lumbar spondylosis . Especially, L2-L3 level has a large extruded disc with inferior migration. 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 She is here for a Lumbar epidural steroid injection under fluoroscopic guidance . The risks and benefits of the procedure were discussed in detail. She wishes to proceed. She can follow up for a repeat injection in three months. [email or web address] Not available 04/15/2024 16:35:05 07/30/2024 07/30/2024 Oxana Newell is a 89 year old woman with complaints of low back pain radiating into right lower extremity with numbness and weakness. She has had physical therapy with persistent pain. On exam, she has pain on flexion and a positive straight leg raising test on the right. MRI Lumbar spine shows multiple levels of lumbar spondylosis . Especially, L2-L3 level has a large extruded disc with inferior migration. 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 She is here for a Lumbar epidural steroid injection under fluoroscopic guidance . The risks and benefits of the procedure were discussed in detail. She wishes to proceed. She can follow up for a repeat injection in three months. [email or web address] Not available 07/30/2024 11:25:12 Plan of Treatment Reminders Order Date Submit Date Provider Last Modified By Organization Details Last Modified Time Details Appointments PROCEDURE 2024 10:00A M Cara bhatia MD Not available Not available Not available Lab None recorded. Referral None recorded. Procedures None recorded. Surgeries None recorded. Imaging None recorded. Medication Orders None recorded. Patient TargetsNo targets recorded. Patient Instructions Encounter Date Encounter Id Patient Instructions Last Modified By Organization Details Last Modified Time 09/13/2023 [id number] She was advised against bed rest lasting longer than four days and to continue activities as tolerated. [email or web address] Not available 09/13/2023 14:36:14 09/18/2023 [id number] She was advised against bed rest lasting longer than four days and to continue activities as tolerated. [email or web address] Not available 09/18/2023 10:01:16 01/02/2024 [id number] She was advised against bed rest lasting longer than four days and to continue activities as tolerated. [email or web address] Not available 01/02/2024 09:04:59 Reason for Referral None Reported. Problems Name Problem SNOMED Code Status Onset Date Resolution Date Notes Provider Name and Address Organization Details Recorded Time Lumbosacral radiculopathy 8823677 Active Cara bhatia MD [address] [facility] , [address], [place], [address], [place] - [facility] 0 09:28:16 Degeneration of lumbar intervertebral disc 08122834 Active Cara bhatia MD [address] [facility] , [address], [place], [address], [place] - [facility] 0 09:28:26 Problem Notes None recorded. Procedures Surgical History Date Name Laterality Status Provider Name and Address Organization Details Recorded Time 07/31/19 25 Lumbar Epidural steroid injection under fluoroscopic guidance completed Cara Mooney MD [address] , [address], [place], [address], [place] [facility] 07/30/2024 11:25:59 04/15/20 24 Lumbar Epidural steroid injection under fluoroscopic guidance completed Cara Mooney MD [address] [facility] , [address], [place], [address], [place] [facility] 04/15/2024 16:26:50 01/02/20 24 Lumbar Epidural steroid injection under fluoroscopic guidance completed Cara Mooney MD [address] [facility] , [address], [place], [address], [place] [facility] 01/02/2024 09:05:37 09/18/19 24 Lumbar Epidural steroid injection under fluoroscopic guidance completed Cara Mooney MD [address] [facility] , [address], [place], [address], [place] [facility] 09/18/2023 10:02:38 11/09/19 23 Lumbar Epidural steroid injection under fluoroscopic guidance completed Cara Mooney MD [address] [facility] , [address], [place], [address], [place] [facility] 11/08/2022 10:20:12 07/19/19 23 Lumbar Epidural steroid injection under fluoroscopic guidance completed Cara Mooney MD [address] [facility] , [address], [place], [address], [place] [facility] 07/19/2022 14:49:08 03/21/20 22 Lumbar Epidural steroid injection under fluoroscopic guidance completed Cara Mooney MD [address] [facility] , [address], [place], [address], [place] [facility] 03/21/2022 10:21:07 11/24/19 22 Lumbar Epidural steroid injection under fluoroscopic guidance completed Cara Mooney MD [address] [facility] , [address], [place], [address], [place] [facility] 11/23/2021 14:34:54 01/20/20 21 Lumbar Epidural steroid injection under fluoroscopic guidance completed Cara Mooney MD [address] [facility] , [address], [place], [address], [place] [facility] 01/19/2021 10:27:26 10/20/19 21 Lumbar Epidural steroid injection under fluoroscopic guidance completed Cara Mooney MD [address] [facility] , [address], [place], [address], [place] [facility] 10/19/2020 09:22:26 07/20/19 21 Lumbar Epidural steroid injection under fluoroscopic guidance completed Cara Mooney MD [address] [facility] , [address], [place], [address], [place] [facility] 07/20/2020 09:23:51 04/20/20 20 Lumbar Epidural steroid injection under fluoroscopic guidance completed Cara Mooney MD [address] [facility] , [address], [place], [address], [place] [facility] 04/20/2020 09:29:26 01/05/20 20 Lumbar Epidural steroid injection under fluoroscopic guidance completed Cara Mooney MD [address] [facility] , [address], [place], [address], [place] [facility] 01/05/2020 13:49:27 08/12/19 20 Lumbar Epidural steroid injection under fluoroscopic guidance completed Cara Mooney MD [address] [facility] , [address], [place], [address], [place] [facility] 08/12/2019 16:25:59 total replacement of hip completed [facility] [address] [facility] [address], [place], [address], [place] [facility] 07/14/2019 10:15:17 total knee replacement completed Cara Mooney MD [address] [facility] , [address], [place], [address], [place] [facility] 07/14/2019 10:15:44 hysterectomy completed Cara Mooney MD [address] [facility] , [address], [place], [address], [place] [facility] 07/14/2019 10:16:09 lumpectomy of right breast completed Cara Mooney MD [address] [facility] , [address], [place], [address], [place] [facility] 07/14/2019 10:16:19 Imaging Results None recorded. Procedure Notes None recorded. Medical Equipment None Reported. Allergies Allergen ID Allergen Name Allergen Category Reaction Reaction Severity Criticality Documentation Date Start Date Code Code System Note Provider Name and Address Organization Details Recorded Time 62128 Bactrim medicatio n Not available Not available Not available 07/14/2019 27833 9 RxNorm Cara bhatia MD [address] [facility] , [address], [facility] [place], [address], [place] [facility] 0 10:12:20 53618 Fosamax medicatio n Not available Not available Not available 07/14/2019 24193 5 RxNorm Cara bhatia MD [address] [facility] , [address], [place], [address], [place] [facility] 0 10:12:32 60618 trazodone medicatio n Not available Not available Not available 07/14/2019 96167 RxNorm Cara bhatia MD [address] [facility] , [address], [place], [address], [place] [facility] 0 10:12:53 Medications Name Sig Start Date Stop Date Status Note LastModified by Organization Details LastModified Time losartan 50 mg tablet TAKE 1 AND 1/2 TABLETS DAILY BY MOUTH 04/15 completed Not Available Not Available Not Available celecoxib 200 mg capsule 10/12 completed Not Available Not Available Not Available amoxicillin 500 mg capsule TAKE 4 CAPSULES BY MOUTH DIRECTED 1 HOUR BEFORE DENTIST APPOINTME NT active Not Available Not Available No t Available anastrozole 1 mg tablet TAKE 1 TABLET BY MOUTH EVERY DAY 11/08 completed Not Available Not Available Not Available doxycycline hyclate 100 mg capsule 07/14 completed Not Available Not Available Not Available azithromyci n 250 mg tablet TAKE 2 TABS 1 HR PRIOR TO DENTAL APPT AND THEN 1 TAB EVERY 12 HOURS UNTIL ALL MEDICATIO N IS FINISHED 04/15 completed Not Available Not Available Not Available benzonatate 200 mg capsule TAKE 1 CAPSULE BY MOUTH 3 TIMES A DAY FOR 7 DAYS 04/15 completed Not Available Not Available Not Available amlodipine 5 mg tablet TAKE 1 TABLET BY MOUTH DAILY active Not Available Not Available No t Available carvedilol 3.125 mg tablet TAKE 1 TABLET BY MOUTH 2 TIMES A DAY. MUST ADMINISTE R WITH A MEAL/FOOD active Not Available Not Available No t Available losartan 100 mg-hydrochl orothiazide 25 mg tablet TAKE 1 TABLET BY MOUTH EVERY DAY 09/12 completed Not Available Not Available Not Available hydromorpho ne 2 mg tablet PLEASE SEE ATTACHED FOR DETAILED DIRECTION S 08/31 completed Not Available Not Available Not Available aspirin 325 mg tablet,anselmo yed release TAKE 1 TABLET BY MOUTH TWICE A DAY 07/14 completed Not Available Not Available Not Available amlodipine 10 mg tablet TAKE 1 TABLET BY MOUTH EVERY DAY 04/15 completed Not Available Not Available Not Available benzonatate 100 mg capsule TAKE 1 CAPSULE BY MOUTH THREE TIMES A DAY NEEDED 07/14 completed Not Available Not Available Not Available pantoprazol e 40 mg tablet,anselmo yed release TAKE 1 TABLET BY MOUTH EVERY MORNING 08/31 completed Not Available Not Available Not Available erythromyci n 5 mg/gram (0.5 %) eye ointment 07/14 completed Not Available Not Available Not Available dexamethaso ne 4 mg tablet take 3 tablets the first two days and then take 2 tablets on the third day and one tablet on the fourth day and fifth day. 01/04 completed Not Available Not Available Not Available prednisone 50 mg tablet 07/14 completed Not Available Not Available Not Available losartan 25 mg tablet TAKE 2 TABLETS BY MOUTH EVERY DAY 09/12 completed Not Available Not Available Not Available gabapentin 300 mg capsule TAKE 1 TAB ORALLY DAILY active Not Available Not Available No t Available dorzolamide 22.3 mg-timolol 6.8 mg/mL eye drops INSTILL 1 DROP INTO BOTH EYES TWICE A DAY active Not Available Not Available No t Available codeine 10 mg-guaifene sin 100 mg/5 mL oral liquid TAKE 10 ML BY MOUTH EVERY 4 HOURS NEEDED. 07/14 completed Not Available Not Available Not Available Longs Adult Low Strength ASA 81 mg tablet,anselmo yed release Take 1 tablet every day by oral route. 08/31 completed Not Available Not Available Not Available zolpidem 5 mg tablet TAKE 1 TABLET BY MOUTH AT BEDTIME NEEDED FOR INSOMNIA active Not Available Not Available No t Available gabapentin 100 mg capsule 10/12 completed Not Available Not Available Not Available diazepam 10 mg tablet TAKE 1 TO 3 TABLETS THE DAY OF THE PROCEDURE . TO BE ADMINISTE RED BY PHYSICIAN . 08/11 completed Not Available Not Available Not Available hydrocodone 10 mg-chlorphe niramine 8 mg/5 mL oral susp extend.rel 12hr TAKE 5 ML BY MOUTH EVERY 12 HOURS NEEDED. 07/14 completed Not Available Not Available Not Available albuterol sulfate HFA 90 mcg/actuati on aerosol inhaler INHALE 1 PUFF EVERY 4 HOURS NEEDED 07/14 completed Not Available Not Available Not Available timolol maleate 0.5 % eye drops INSTILL 1 DROP INTO BOTH EYES EVERY MORNING active Not Available Not Available No t Available ipratropium bromide 21 mcg (0.03 %) nasal spray 2 SPRAYS IN BOTH NOSTRILS 3 TIMES A DAY NEEDED FOR RUNNY NOSE active Not Available Not Available No t Available mometasone 0.1 % topical cream APPLY SPARINGLY TO AFFECTED AREA TWICE A DAY NEEDED 01/01 completed Not Available Not Available Not Available dorzolamide 2 % eye drops 09/12 completed Not Available Not Available Not Available Phos-NaK 280 mg-160 mg-250 mg oral powder packet TAKE 1 PACKET TWICE DAILY FOR 2 DAYS DIRECTED 11/08 completed Not Available Not Available Not Available Restasis 0.05 % eye drops in a dropperette active Not Available Not Available Not Available rosuvastati n 5 mg tablet 11/08 completed Not Available Not Available Not Available rosuvastati n 10 mg tablet TAKE 1 TABLET BY MOUTH DAILY active Not Available Not Available No t Available Flovent HFA 110 mcg/actuati on aerosol inhaler 07/14 completed Not Available Not Available Not Available Xarelto 20 mg tablet 07/14 completed Not Available Not Available Not Available Eliquis 5 mg tablet TAKE 1 TABLET BY MOUTH TWICE A DAY active Not Available Not Available No t Available Eliquis 2.5 mg tablet TAKE 1 TABLET BY MOUTH TWICE A DAY 07/13 completed Not Available Not Available Not Available Shingrix (PF) 50 mcg/0.5 mL intramuscul ar suspension, kit 07/14 completed Not Available Not Available Not Available Sodium Fluoride 5000 Dry Mouth 1.1 % dental paste APPLY THIN RIBBON TO BRUSH. BRUSH FOR 2 MINUTES AT BEDTIME. DO NOT EAT, DRINK, OR RINSE FOR 30 MINS. active Not Available Not Available No t Available Vitals Date Recorded Body height Body mass index (BMI) Body weight Heart rate Oxygen saturation Oxygen saturation in Arterial blood by Pulse oximetry Systolic blood pressure Diastolic blood pressure Provider Name and Address Organization Details Last Updated DateTime 5 170.18 cm 24.6 kg/m2 78199 g 63 /min 99 % 99 % 144 mm[Hg] 73 mm[Hg] Jane Villagranton [place] - [facility] 5 11:07:54 Date Recorded Body height Heart rate Oxygen saturation Oxygen saturation in Arterial blood by Pulse oximetry Systolic blood pressure Diastolic blood pressure Provider Name and Address Organization Details Last Updated DateTime 4 170.18 cm 72 /min 99 % 99 % 180 mm[Hg] 81 mm[Hg] Margareth Parekh [place] - [facility] 4 13:40:07 Date Recorded Body height Oxygen saturation Oxygen saturation in Arterial blood by Pulse oximetry Heart rate Systolic blood pressure Diastolic blood pressure Provider Name and Address Organization Details Last Updated DateTime 4 170.18 cm 97 % 97 % 53 /min 146 mm[Hg] 61 mm[Hg] Arabella Randhawa PA - [facility] 4 09:39:33 Date Recorded Body height Heart rate Oxygen saturation Oxygen saturation in Arterial blood by Pulse oximetry Systolic blood pressure Diastolic blood pressure Provider Name and Address Organization Details Last Updated DateTime 4 170.18 cm 56 /min 97 % 97 % 167 mm[Hg] 67 mm[Hg] Cara bhatia MD [address] [facility] , [address], [place], [address], [place] - [facility] 4 08:36:16 Date Recorded Body height Heart rate Oxygen saturation Oxygen saturation in Arterial blood by Pulse oximetry Systolic blood pressure Diastolic blood pressure Provider Name and Address Organization Details Last Updated DateTime 4 170.18 cm 61 /min 98 % 98 % 142 mm[Hg] 55 mm[Hg] Arabella Randhawa [place] - [facility] 4 10:36:20 Social History None recorded. Functional Status None recorded. Mental Status None recorded. Family History Relationship Description Onset Age of this Age Resolved Age Notes LastModified by Organization Details LastModified Time Brother Alzheimer's disease [email or web address] Not available 03/29 09:28:07 Notes:Brother has Cardiac Is hernán, Alzheimers Medical History Condition Response Coronary Artery Disease N Gout N Neuropathy/Neuralgia N Kidney Stones N Hyperthyroidism N COPD N Depression N Hypothyroidism N Hepatitis C N Migrane N Anxiety Disorder N Diabetes N Arthritis Y Seizures/Epilepsy N Hyperlipidemia N Cancer Y Stroke N Asthma N HIV/AIDS N Headache N Bipolar Disorder N GERD/Reflux N High Cholesterol Y Liver Disease N Pulmonary Embolism N Fibromyalgia N Irritable Bowel Syndrome N Hypertension Y Osteoporosis N Kidney Disease N Gynecological HistoryNo gynecological history recorded. Obstetrics History GPAL:G 0 P 0 0 0 0 Past Encounters Encounter ID Performer Location Encounter Start Date Encounter Closed Date Diagnosis/Indication Diagnosis SNOMED-CT Code Diagnosis ICD10 Code Diagnosis Note [id number] Cara Mooney MD PAIN OFFICE [address] [place] [address] 07/14/2019 09:19:11 07/14/2019 13:40:51 Degeneration of lumbar intervertebral disc 29464593 M51.36 Lumbosacra l radiculopathy 6835316 M54.17 [id number] Cara Mooney MD PAIN OFFICE [address] [place] [address] 07/21/2019 09:20:10 07/21/2019 14:52:24 Degeneration of lumbar intervertebral disc 21610556 M51.36 Lumbosacra l radiculopathy 3055847 M54.17 [id number] Cara Mooney MD [facility] [address] [place] [address] 08/12/2019 10:22:42 08/12/2019 16:29:03 Degeneration of lumbar intervertebral disc 16509741 M51.36 Lumbosacra l radiculopathy 0070430 M54.17 [id number] Cara Mooney MD PAIN OFFICE [address] [place] [address] 10/13/2019 10:04:03 10/13/2019 10:25:30 Degeneration of lumbar intervertebral disc 14524717 M51.36 Lumbosacra l radiculopathy 2832367 M54.17 [id number] Cara Mooney MD [facility] [address] [place] [address] 01/05/2020 13:28:43 01/05/2020 13:52:35 Degeneration of lumbar intervertebral disc 60001241 M51.36 Lumbosacra l radiculopathy 0367794 M54.17 [id number] Cara Mooney MD [facility] [address] [place] [address] 04/20/2020 08:59:03 04/20/2020 11:43:00 Degeneration of lumbar intervertebral disc 32742577 M51.36 Lumbosacra l radiculopathy 8989187 M54.17 [id number] Cara Mooney MD [facility] [address] [place] [address] 07/20/2020 08:55:50 07/20/2020 10:24:13 Degeneration of lumbar intervertebral disc 71171510 M51.36 Lumbosacra l radiculopathy 2457782 M54.17 [id number] Cara Mooney MD [facility] [address] [place] [address] 10/19/2020 08:57:57 10/19/2020 09:25:07 Degeneration of lumbar intervertebral disc 04762270 M51.36 Lumbosacra l radiculopathy 0883146 M54.17 [id number] Cara Mooney MD [facility] [address] [place] [place] [address] 01/19/2021 09:56:35 01/19/2021 10:50:52 Degeneration of lumbar intervertebral disc 43976688 M51.36 Lumbosacra l radiculopathy 8083111 M54.17 [id number] Cara Mooney MD [facility] [address] [facility] [place] [place] [address] 08/31/2021 14:21:19 08/31/2021 15:12:15 Degeneration of lumbar intervertebral disc 27559577 M51.36 Lumbosacra l radiculopathy 5477030 M54.17 [id number] Cara Mooney MD [facility] [address] [facility] [place] [address] 11/23/2021 13:55:06 11/24/2021 08:57:41 Degeneration of lumbar intervertebral disc 90487628 M51.36 Lumbosacra l radiculopathy 4977230 M54.17 [id number] Cara Mooney MD [facility] [address] [facility] [place] [place] [address] 03/21/2022 09:55:29 03/21/2022 10:23:58 Degeneration of lumbar intervertebral disc 69374647 M51.36 Lumbosacra l radiculopathy 9813257 M54.17 [id number] Cara Mooney MD [facility] [address] [place] [address] 07/19/2022 13:58:57 07/19/2022 15:12:23 Degeneration of lumbar intervertebral disc 40767688 M51.36 Lumbosacra l radiculopathy 2798415 M54.17 [id number] Cara Mooney MD [facility] [address] [place] [address] 11/08/2022 09:53:28 11/08/2022 11:23:18 Degeneration of lumbar intervertebral disc 97415811 M51.36 Lumbosacra l radiculopathy 7699538 M54.17 [id number] Cara Mooney MD [facility] [address] [place] [address] 09/13/2023 13:28:01 09/13/2023 14:37:48 Lumbosacral radiculopathy 5066789 M54.17 Degenerati on of lumbar intervertebral disc 20277364 M51.36 [id number] Cara Mooney MD [facility] [address] [place] [address] 09/18/2023 09:14:19 09/18/2023 14:21:00 Degeneration of lumbar intervertebral disc 47741925 M51.36 Lumbosacra l radiculopathy 7216485 M54.17 [id number] Cara Mooney MD [facility] [address] [place] [address] 01/02/2024 08:22:10 01/02/2024 16:15:42 Lumbosacral radiculopathy 5671576 M54.17 Degenerati on of lumbar intervertebral disc 02561318 M51.36 [id number] Cara Mooney MD [facility] [address] [place] [address] 04/15/2024 10:09:48 04/15/2024 16:43:12 Lumbosacral radiculopathy 1236535 M54.17 Degenerati on of lumbar intervertebral disc 93787612 M51.362 [id number] Cara Mooney MD [facility] [address] [facility] [place] [place] [address] 07/30/2024 10:40:34 07/30/2024 14:45:28 Lumbosacral radiculopathy 7510187 M54.17 Degenerati on of lumbar intervertebral disc [id number] M51.362 Health Concerns Section Related Observation LastModified by Organization Detai ls LastModified Time None Recorded Concern Status LastModified by Organization Details LastModified Time None Recorded Advance Directives Directive None Recorded Payers Encounter Date Sequence Insurance Name Policy Number Policy Shanks Covered Member ID Shanks Member ID Guarantor Name 09/13/2023 1 [place] Oxana Newell [id number] Oxana Newell 09/13/2023 2 [place] [id number] Oxana Newell [id number] Oxana Newell 09/18/2023 1 [place] Oxana Newell [id number] Oxana Newell 09/18/2023 2 [place] [id number] Oxana Newell [id number] Oxana Newell 01/02/2024 1 [place] Oxana Newell [id number] Oxana Newell 01/02/2024 2 [place] [id number] Oxana Newell [id number] Oxana Newell 04/15/2024 1 [place] Oxana Newell [id number] Oxana Newell 04/15/2024 2 [place] [id number] Oxana Newell [id number] Oxana Newell 07/30/2024 1 [place] Oxana Newell [id number] Oxana Newell 07/30/2024 2 [place] [id number] Oxana Newell [id number] Oxana Newell Notes Date Note Type Note Provider Name and Address Organization Details Recorded Time 09/13/2023 text/html Oxana Newell i s a 88 year old woman with complaints of low back pain radiating into right lower extremity. She was last seen on 10/2022 for a lumbar epidural steroid injection under fluoroscopic guidance and reports 90% pain benefit for three months with return of pain back to baseline. She had a pulmonary embolism and is on eliquis . She could not stop the medication for 6 months. She also had covid and was feeling poorly in May 2023. She is now better. She has been doing exercises at home and is feeling stronger now. Cara Mooney MD [address] [facility] , [address], [place], [address], [place] [facility] 09/13/2023 15:04:57 09/18/2023 text/html She is here for a lumbar epidural steroid injection under fluoroscopic guidance. She has stopped eliquis for three days prior to the procedure Cara Mooney MD [address] [facility] , [address], [place], [address], [place] [facility] 09/18/2023 15:59:09 01/02/2024 text/html She is here for a lumbar epidural steroid injection under fluoroscopic guidance. She has stopped eliquis for three days prior to the procedure Cara Mooney MD [address] [facility] , [address], [place], [address], [facility] 01/02/2024 16:31:06 04/15/2024 text/html She is here for a lumbar epidural steroid injection under fluoroscopic guidance. She has stopped eliquis for three days prior to the procedure Cara Mooney MD [address] [facility] , [address], [place], [address], [facility] - Pain Management 04/15/2024 16:50:05 07/30/2024 text/html She is here for a lumbar epidural steroid injection under fluoroscopic guidance. She has stopped eliquis for three days prior to the procedure Cara Mooney MD [address] [facility] , [address], [place], [address], [facility] - Pain Management 07/30/2024 14:53:52 OBGyn Episode No OBEpisode recorded.
== END 2024-10-23 10:46 | disposition home or self-care (01) ==
LOC: HO.HMCFM 09:47
PROVIDERS: PCP Physician Assistant Medical; Visit Provider Physician Assistant Medical
DX: Z86.711 Personal history of pulmonary embolism (principal); C50.911 Malignant neoplasm of unspecified site of right female breast; I10 Essential (primary) hypertension; M85.80 Other specified disorders of bone density and structure, unspecified site; S42.001A Fracture of unspecified part of right clavicle, initial encounter for closed fracture; E83.52 Hypercalcemia; G47.00 Insomnia, unspecified

== ENCOUNTER → 2024-10-23 09:46 | Outpatient (BNVA) | payer MEDICARE, SELFPAY | PROVIDERS: PCP Physician Assistant Medical; Visit Provider Physician Assistant Medical | DX: I12.9 Hypertensive chronic kidney disease with stage 1 through stage 4 chronic kidney disease, or unspecified chronic kidney disease (principal); N18.32 Chronic kidney disease, stage 3b; E78.5 Hyperlipidemia, unspecified; G62.9 Polyneuropathy, unspecified; C50.911 Malignant neoplasm of unspecified site of right female breast; M85.80 Other specified disorders of bone density and structure, unspecified site; E83.52 Hypercalcemia; G47.00 Insomnia, unspecified; S42.001A Fracture of unspecified part of right clavicle, initial encounter for closed fracture; X58.XXXA Exposure to other specified factors, initial encounter; Y93.9 Activity, unspecified; Y92.9 Unspecified place or not applicable; Y99.9 Unspecified external cause status; Z86.711 Personal history of pulmonary embolism; Z79.01 Long term (current) use of anticoagulants; Z86.718 Personal history of other venous thrombosis and embolism | CPT/HCPCS: 99212 ==

== ENCOUNTER 2025-02-12 09:07 | Outpatient (REF) | payer MEDICARE, SELFPAY ==
[2025-02-12 11:38] LABS: MANUAL DIFF FLAG NO
[2025-02-12 11:41] LABS: Hematocrit 43.9 % (37.0-47.0); Hemoglobin 14.3 g/dl (12.0-16.0); Imm Gran Abs Auto 0.03 X10*3/uL (0.00-0.03); Imm Gran Pct Auto 0.5 % (0.0-0.4); Lymphocytes Absolute Auto 1.0 X10*3/uL (1.2-4.9); Mean Corpuscular HGB Conc 32.6 g/dl (31.0-35.0); Mean Corpuscular Hemoglobin 32.9 pg (27.0-33.0); Mean Corpuscular Volume 100.9 fL (80.0-98.0); NRBC Abs Auto 0.000 X10*3/uL (0.0-0.012); NRBC Pct Auto 0.0 /100WBC (0.0-0.2); Platelet Count 201 X10*3/uL (160-400); Red Blood Count 4.35 X10*6/uL (4.20-5.50); White Blood Count 6.2 X10*3/uL (4.8-10.8)
[2025-02-12 12:00] LABS: Parathyroid Hormone Intact 105.4 pg/mL (8.7-77.1)
[2025-02-12 12:02] LABS: Alanine Aminotransferase 20 U/L (0-31); Albumin Level 4.0 g/dL (3.5-5.0); Alkaline Phosphatase 41 U/L (39-117); Anion Gap 9 (12-20); Aspartate Amino Transferase 32 U/L (5-31); Blood Urea Nitrogen 14 mg/dL (9-16); Calcium 9.2 mg/dL (8.4-10.2); Carbon Dioxide 28 mmol/L (22-29); Chloride 110 mmol/L (96-108); Cholesterol 174 mg/dL (<200); Estimated Glomerular Filt Rate 49; HDL Cholesterol 57 mg/dL (>40); Potassium 3.4 mmol/L (3.3-5.1); Sodium 144 mmol/L (135-145); Total Protein 6.3 g/dL (6.5-8.0); Triglycerides 141 mg/dL (<150)
[2025-02-20 15:24] LABS: VITAMIN D (1,25 OH) D3 59 pg/mL; Vit D (1,25-Dihydroxy) Total 59 pg/mL (18-72); Vitamin D (1,25 OH) D2 <8 pg/mL
== END 2025-02-12 09:08 | disposition home or self-care (01) ==
LOC: HO.WFDLDS 09:07
PROVIDERS: PCP Physician Assistant Medical; Visit Provider Physician Assistant Medical
DX: R60.0 Localized edema (principal); E83.52 Hypercalcemia; E87.5 Hyperkalemia; I10 Essential (primary) hypertension; E78.5 Hyperlipidemia, unspecified; K64.9 Unspecified hemorrhoids; K62.5 Hemorrhage of anus and rectum; M85.89 Other specified disorders of bone density and structure, multiple sites; G47.00 Insomnia, unspecified; Z85.3 Personal history of malignant neoplasm of breast; Z79.899 Other long term (current) drug therapy
CPT/HCPCS: 36415; 80053; 80061; 82652; 83970; 85025; 99212

== ENCOUNTER 2025-02-12 09:07 | Outpatient (AMB) | payer MEDICARE, SELFPAY ==
--- NOTE | 2025-02-12 09:20 | A.OFFPC_ITS ---
Vital Signs 02/12/25 09:27 Height 5 ft 7 in Weight 147 lb 8 oz BMI 23.1 BP 110/62 Blood Pressure Location Rt brachial Position Sitting Respiration 16 Pulse 65 Pulse Source Pulse Oximeter Temp 98.6 F Temp Source Temporal Artery Scan Pulse Oximetry (%) 96 Oxygen Delivery Method Room Air Intake Visit Reasons: Medication review Intake Note: Oxana presents in the office today for a medication review. Patient needs a refill of her amlodpine SERPs Mail Service. Allergies bactrum Allergy (Mild, Uncoded 02/12/25 09:23) Unknown losartan Adverse Reaction (Intermediate, Uncoded 02/12/25 09:23) hyperkalemia Medication List - Last Reconciled 02/12/25 by LYNNE Louis amlodipine 2.5 mg PO DAILY amoxicillin 1,000 mg PO BID carvedilol 3.125 mg PO BID coenzyme Q10 (Co Q-10) 100 mg PO DAILY dorzolamide 2% drps ophthalmic (eye) Eliquis (apixaban) 5 mg PO BID NS furosemide (Lasix) 20 mg PO QAM PRN gabapentin 300 mg PO DAILY rosuvastatin 10 mg PO DAILY zolpidem 5 mg PO BEDTIME PRN Tobacco use date assessed: 02/12/25 Dental Screening Dental Screen Date: 02/12/25 Did you have a dental visit in the last 12 months?: Yes Did you have a dental problem in the last 6 months where you did not have access to dental care?: No Was dental information given to patient?: Patient has dentist HPI HPI Comments History of Present Illness Details This is an 89-year-old female with a past medical history of invasive ductal carcinoma of the right breast, bilateral PE and left calf DVT anticoagulated on apixaban, hypertension, hyperlipidemia, CKD stage IIIB, peripheral neuropathy, insomnia and glaucoma presenting for follow up. The patient broke her proximal right clavicle in July. CT demonstrated fracture and small hematoma but no evidence of osteolytic lesions ( ER note reviewed). She has a remote history of breast cancer. This was after a file cabinet fell on top of arm. There was no loss of consciousness. Patient followed by new [facility]. She did physical therapy. She had a bone density exam that was consistent with osteopenia. Hypertension-she reduced amlodipine to 2.5 mg due to peripheral edema. She is taking carvedilol 3.125 mg twice daily. I reviewed a list of her home readings, and her blood pressure today. Hypertension is controlled. Patient had an echocardiogram done at [facility] in June of 2023 which demonstrated a normal ejection fraction of 60-65% and indeterminate diastolic function. She takes Lasix 20 mg daily which has significantly improved her lower extremity edema. We reviewed her previous lab work again today which showed elevated PTH, calcium normalized, normal vitamin-D and decreased renal function. She previously declined referral to the specialist, but she is going to repeat the lab work today. 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 Rushing. She is to continue anticoagulation indefinitely. She had right breast cancer in 2018. No known recurrence. Saw Dr. Rushing for this. She has annual mammograms with [facility]. She has an appointment in March for the mammogram. Insomnia was treated with trazodone, and she did not tolerate side effects. She does well on Ambien. She sleeps 8-9 hours per night. No side effects to this medication. She requests referral due to hemorrhoids which are causing intermittent pain. Patient endorses chronic constipation. She sometimes sees bright red blood on the tissue paper after wiping. Unknown last colonoscopy. Denies abdominal pain, unexplained weight loss, blood in stools, diarrhea, nausea, vomiting. ROS: Constitutional: No unexplained weight loss, fever, chills, fatigue or night sweats. Eyes: No vision changes, blurry vision, double vision. Respiratory: No shortness of breath, cough or sputum production. Cardiovascular: No chest pain, chest pressure or chest discomfort. No palpitations. Gastrointestinal: No anorexia, nausea, vomiting or diarrhea. No abdominal pain or blood in stool. Genitourinary: No dysuria, hematuria, urinary frequency. Neurologic: No headache, dizziness, syncope, unilateral weakness, ataxia, numbness or tingling in the extremities. Physical exam: Constitutional: Alert, in no distress. Head: Normocephalic. Neck: Supple, Full range of motion. No lymphadenopathy. No palpable thyroid masses. Respiratory: Clear to auscultation. Cardiovascular: S1 S2 regular. No murmurs. Extremities: No clubbing or cyanosis. Trace bilateral lower extremity edema. Abdomen: Soft, nontender, normoactive bowel sounds, no rebound or guarding, no palpable masses Rectal: Patient declined examination today. [facility] Medical History (Updated 02/13/25 @ 10:03 by LYNNE Louis) Lower extremity edema Bright red blood per rectum Hemorrhoids Right clavicle fracture Bilateral lower extremity edema Serum calcium elevated Hyperkalemia Tachycardia Transient cerebral ischemia Restless legs Postherpetic neuralgia Osteopenia Osteoarthritis Multiple nodules of lung Mitral valve regurgitation Lumbar radiculopathy Insomnia HTN (hypertension) Hyperlipidemia History of DVT of lower extremity Glaucoma Dust allergy Chronic kidney disease, stage 3b Breast cancer, right Atrial septal aneurysm Arthritis Acute pulmonary embolism Surgical History (Updated 02/28/24 @ 11:38 by LYNNE Louis) History of cataract surgery History of hysterectomy History of tonsillectomy History of left hip replacement History of left knee replacement History of lumpectomy of right breast History of right hip replacement History of right knee joint replacement Social History (Updated 02/12/25 @ 09:27 by Nikki Mcgowan CMA) Housing: House Alcohol intake: current Patient Tobacco Use Status: Never used Tobacco e-Cigarette/Vaping Use: Never Used Second Hand Smoke Exposure: No Use of substances other than those prescribed or required for medical reasons: No service: No Current occupational status: retired Current occupational exposures/hazards: No Cognitive needs: No Hearing needs: No Vision needs: Yes Questionnaire PHQ-9 Over the last 2 weeks, how often have you been bothered by any of the following problems? 3. Trouble falling or staying asleep, or sleeping too much: not at all Source: Developed by Drs. Israel Perez, Lexi Garcia, Tyrone Valentine and colleagues, with an educational eros from [employer] Thrive Questionnaire Date Thrive assessed: 10/16/24 I am a: Patient What is your living situation today?: I have a steady place to live Within the past 12 months, did the food you bought not last and you didn't have the money to get more?: Never true Within the past 12 months, did you worry whether your food would run out before you got money to buy more?: Never true Do you have trouble paying for medicines?: No Do you have trouble getting transportation to medical appointments?: No Do you have trouble paying your heating and electricity bill?: I choose not to answer this question Do you have trouble taking care of your child, family member or friend?: I choose not to answer this question Do you have trouble with day-to-day activities such as bathing, preparing meals, shopping, managing finances, etc.?: No Are you currently unemployed and looking for a job?: No Are you interested in more education?: No Please select the resources that you would like help with: None Currently or been in a relationship where the following occur: I choose not to answer THRIVE Score: 0 SAÚL-7 AMB Questionnaire SAÚL-7 Date SAÚL - 7 assessed: 02/28/24 Source: Developed by Drs. Israel Perez, Lexi Garcia, Tyrone Valentine and colleagues, with an educational eros from [employer] Physical exam (Primary Care) Vital Signs: Last Vital Signs Temp 98.6 F 02/12/25 09:27 Pulse 65 02/12/25 09:27 Resp 16 02/12/25 09:27 BP 110/62 02/12/25 09:27 Pulse Ox 96 02/12/25 09:27 Oxygen Delivery Method Room Air 02/12/25 09:27 BMI result Body Mass Index 23.1 Tobacco/Smoking Status: Tobacco use Status Tobacco use date assessed 02/12/25 02/12/25 09:30 Patient Tobacco Use Status Never used Tobacco 02/12/25 09:27 e-Cigarette/Vaping Use Never Used 02/12/25 09:27 Thrive Assessment: Date of Thrive Assessment Date Thrive assessed 10/16/24 02/12/25 09:22 Currently or been in a relationship where the following occur: I choose not to answer Coding Level of Care Code Est Pt Level 4 (72111) Complex EM visit Add On G2211 Diagnoses Hemorrhoids, unspecified hemorrhoid type K64.9 Hemorrhoid type: unspecified Bright red blood per rectum K62.5 History of pulmonary embolism Z86.711 Breast cancer, right C50.911 Primary hypertension I10 Hypertension type: primary hypertension Osteopenia of multiple sites M85.89 Osteopenia location: multiple sites Serum calcium elevated E83.52 Insomnia G47.00 Lower extremity edema R60.0 Assessment & Plan Assessment & Plan (1) Hemorrhoids: Code(s): K64.9 - Unspecified hemorrhoids Category: Medical Qualifiers: Hemorrhoid type: unspecified Qualified Code(s): K64.9 - Unspecified hemorrhoids Plan: We discussed that hemorrhoids can be a source of bleeding, however she did not want me to examine today and just wanted to be referred to surgery. I reviewed with her that without examination I can not confirm if there is a potential rectal mass or other issue like prolapse but she defers exam. I advised her to closely monitor symptoms and contact me if she develops blood in stools, worsening constipation, diarrhea, abdominal pain or lethargy. Patient says if the appointment is not soon with General surgery she will contact me for re-michelle luation. Check CBC. Recommended increasing fiber in her diet and trying a Benefiber supplement. Make sure she is drinking enough fluids. She has a follow up with me on 03/02/2025 so I plan to ask again to examine her and pursue additional workup including referral to Gastroenterology. (2) Bright red blood per rectum: Code(s): K62.5 - Hemorrhage of anus and rectum Category: Medical Plan: See notes above. (3) History of pulmonary embolism: Code(s): Z86.711 - Personal history of pulmonary embolism Category: Medical Plan: On anticoagulation indefinitely. (4) Breast cancer, right: Comment: Invasive ductal carcinoma Code(s): C50.911 - Malignant neoplasm of unspecified site of right female breast Category: Medical Plan: Continue annual mammograms. (5) HTN (hypertension): Code(s): I10 - Essential (primary) hypertension Category: Medical Qualifiers: Hypertension type: primary hypertension Qualified Code(s): I10 - Essential (primary) hypertension Plan: Controlled. Continue current regimen. (6) Osteopenia: Code(s): M85.80 - Other specified disorders of bone density and structure, unspecified site Category: Medical Qualifiers: Osteopenia location: multiple sites Qualified Code(s): M85.89 - Other specified disorders of bone density and structure, multiple sites Plan: Patient needs to repeat calcium and have vitamin-D checked. Recommended getting a total of 1200 mg of calcium from dietary sources in supplements and 1000 IU of vitamin D3 daily. Weightbearing exercise encouraged. Avoid smoking. (7) Serum calcium elevated: Code(s): E83.52 - Hypercalcemia Category: Medical Plan: This resolved on last labs. Rechecked. (8) Insomnia: Code(s): G47.00 - Insomnia, unspecified Category: Medical Plan: Continue Zolpidem. (9) Lower extremity edema: Code(s): R60.0 - Localized edema Category: Medical Plan: Continue Lasix 20 mg daily. Monitor renal function and electrolytes. Orders: Referrals General Surgery Referral K62.5 - Hemorrhage of anus and rectum, K64.9 - Unspecified hemorrhoids Medications: New amlodipine 2.5 mg PO DAILY 90 tabs 3RF Refilled furosemide (Lasix) 20 mg PO QAM PRN 90 tabs 3RF edema
[2025-02-12 09:27] VITALS: BP 110/62; PULSE 65; RESP 16; TEMP 37; O2SAT 96; BMI 23.1
--- OUTSIDE RECORDS SUMMARY | 2025-02-12 10:35 | XMS_ITS | Clinical Summary ---
Author Organization [facility] [place] Address [address] [place] [address] Care Team Providers Care High Climber Name Role Phone Feli Lind Primary Care Provider [phone] Medications amLODIPine (NORVASC) 5 mg tabletIndication s:refills by PCP Take 1 tablet (5 mg total) by mouth 1 (one) time each day. Active carvediloL (COREG) 3.125 mg tabletIndication s:refills PCP Take 1 tablet (3.125 mg total) by mouth 2 (two) times a day with meals. Active apixaban (ELIQUIS) 5 mg tabletIndication s:REfills PCP for PE Take 1 tablet (5 mg total) by mouth 2 (two) times a day. Active rosuvastatin (CRESTOR) 10 mg tabletIndication s:Refills PCP Take 1 tablet (10 mg total) by mouth 1 (one) time each day. Active Encounters Date Type Department Care Team Description 12/09/2024 Telephone [facility] [address] [facility] [address] [place] [address] Gustavo Renee MD from Last 3 Months Social History Tobacco Use Types Packs/Day Years Used Date Smoking Tobacco: Never Assessed Comments Unknown Sex and Gender Information Value Date Recorded Sex Assigned at Not on file Legal Sex Female 1:44 AM EST Gender Identity Not on file Sexual Orientation Not on file Last Filed Vital Signs Vital Sign Reading Time Taken Comments Blood Pressure 142/70 07/26/2023 9:15 AM EST R A rm Pulse 67 06/08/2023 10:26 AM EST Temperature - - Respiratory Rate - - Oxygen Saturation - - Inhaled Oxygen Concentration - - Weight 75.3 kg (166 lb) 07/26/2023 9:15 AM EST Height 170.2 cm (5' 7 ) 07/26/2023 9:15 AM EST Body Mass Index 26 07/26/2023 9:15 AM EST Plan of Treatment Health Maintenance Due Date Last Done Comments DTaP,Tdap,and Td Vaccines (1 - Tdap) 1954 Pneumococcal Vaccine: 50+ Ye ars (1 of 1 - PCV) 1987 Zoster Vaccines (1 of 2) 1987 RSV Immunization Adult Patie nts (1 - 1-dose 75+ series) 2012 Cholesterol Screening (Lipid Panel) 12/25/2023 Falls Risk Assessment 12/25/2023 Osteoporosis Screening (Bone Density Screening) 12/25/2023 Social Influencers of Health Screening 12/25/2023 Depression Screening 05/28/2024 Hypertension/CHF/CAD Annual BMP Blood Test 12/10/2024 COVID-19 Vaccine ( - 2023-2 5 season) 2025 Influenza Vaccine (#1) 2025 HIB Vaccines Aged Out No longer eligi ble based on patient's age to complete this topic HPV Vaccines Aged Out No longer eligi ble based on patient's age to complete this topic Hepatitis A Vaccines Aged Out No long er eligible based on patient's age to complete this topic Hepatitis B Vaccines Aged Out No long er eligible based on patient's age to complete this topic IPV Vaccines Aged Out No longer eligi ble based on patient's age to complete this topic MMR Vaccines Aged Out No longer eligi ble based on patient's age to complete this topic Meningococcal ACWY Vaccine Aged Out N o longer eligible based on patient's age to complete this topic Meningococcal B Vaccine Aged Out No l onger eligible based on patient's age to complete this topic RSV Immunization Patients Un mauro 20 months Aged Out No longer eligible b ased on patient's age to complete this topic Varicella Vaccines Aged Out No longer eligible based on patient's age to complete this topic Care Teams High Climber Relationship Specialty Start Date End Date Feli Lind PA [address] [place] [address] PCP - General Physician Career Technical Education Teacher 12/09/24
== END 2025-02-12 09:53 | disposition home or self-care (01) ==
LOC: HO.HMCFM 09:08
PROVIDERS: PCP Physician Assistant Medical; Visit Provider Physician Assistant Medical
DX: K64.9 Unspecified hemorrhoids (principal); K62.5 Hemorrhage of anus and rectum; Z86.711 Personal history of pulmonary embolism; C50.911 Malignant neoplasm of unspecified site of right female breast; I10 Essential (primary) hypertension; M85.89 Other specified disorders of bone density and structure, multiple sites; E83.52 Hypercalcemia; G47.00 Insomnia, unspecified; R60.0 Localized edema

== ENCOUNTER 2025-03-02 10:16 | Outpatient (REF) | payer MEDICARE, SELFPAY ==
[2025-03-02 14:26] LABS: MANUAL DIFF FLAG NO
[2025-03-02 14:49] LABS: Hematocrit 42.9 % (37.0-47.0); Hemoglobin 14.3 g/dl (12.0-16.0); Imm Gran Abs Auto 0.01 X10*3/uL (0.00-0.03); Imm Gran Pct Auto 0.2 % (0.0-0.4); Lymphocytes Absolute Auto 1.0 X10*3/uL (1.2-4.9); Mean Corpuscular HGB Conc 33.3 g/dl (31.0-35.0); Mean Corpuscular Hemoglobin 33.7 pg (27.0-33.0); Mean Corpuscular Volume 101.2 fL (80.0-98.0); NRBC Abs Auto 0.000 X10*3/uL (0.0-0.012); NRBC Pct Auto 0.0 /100WBC (0.0-0.2); Platelet Count 254 X10*3/uL (160-400); Red Blood Count 4.24 X10*6/uL (4.20-5.50); White Blood Count 5.6 X10*3/uL (4.8-10.8)
[2025-03-02 15:00] LABS: Alanine Aminotransferase 18 U/L (0-31); Aspartate Amino Transferase 31 U/L (5-31)
[2025-03-02 15:33] LABS: Folate 16.4 ng/mL (> or = 4.0); Vitamin B12 473 pg/mL (200-900)
[2025-03-03 08:07] LABS: HBS Num1 0.39 mIU/mL (0-7.99); HBc Num1 0.10 S/CO (0.00-0.79); HBsAGNum1 1.36 S/CO (0.00-0.99); Hepatitis A Antibody IgM 0.25 Index (0-0.79); ~HepC Num1 0.13 S/CO (0.00-0.79); ~Hepatitis A Antibody IgM Nonreactive (Nonreactive); ~Hepatitis B Surface Antibody NONREACTIVE (Nonreactive); ~Hepatitis C Antibody Nonreactive (Nonreactive)
[2025-03-03 09:06] LABS: Hepatitis A Antibody IgM 0.21 Index (0-0.79); ~Hepatitis A Antibody IgM Nonreactive (Nonreactive)
[2025-03-03 10:51] LABS: HBsAGNum2 Nonreactive; HBsAGNum3 Nonreactive; Hepatitis B Surface Antigen NEGATIVE (Negative)
== END 2025-03-02 10:17 | disposition home or self-care (01) ==
LOC: HO.WFDLDS 10:16
PROVIDERS: PCP Physician Assistant Medical; Visit Provider Physician Assistant Medical
DX: R79.89 Other specified abnormal findings of blood chemistry (principal); D75.89 Other specified diseases of blood and blood-forming organs; R07.89 Other chest pain; K64.9 Unspecified hemorrhoids; C50.911 Malignant neoplasm of unspecified site of right female breast; I10 Essential (primary) hypertension; M85.89 Other specified disorders of bone density and structure, multiple sites; E83.52 Hypercalcemia; F51.01 Primary insomnia; R60.0 Localized edema; R74.8 Abnormal levels of other serum enzymes; Z79.2 Long term (current) use of antibiotics; Z79.01 Long term (current) use of anticoagulants; Z79.899 Other long term (current) drug therapy; Z86.711 Personal history of pulmonary embolism
CPT/HCPCS: 82607; 82746; 84450; 84460; 85025; 86704; 86706; 86709; 86803; 87340; 99212

== ENCOUNTER 2025-03-02 10:16 | Outpatient (AMB) | payer MEDICARE, SELFPAY ==
--- NOTE | 2025-03-02 10:37 | A.OFFPC_ITS ---
Vital Signs 03/02/25 10:40 Height 5 ft 7 in Weight 146 lb 4 oz BMI 22.9 BP 118/70 Blood Pressure Location Rt brachial Position Sitting Respiration 16 Pulse 86 Pulse Source Pulse Oximeter Temp 97.2 F Temp Source Temporal Artery Scan Pulse Oximetry (%) 97 Oxygen Delivery Method Room Air Intake Visit Reasons: 30 min follow up Intake Note: Oxana presents in the office today for a 30 minute follow up. Allergies bactrum Allergy (Mild, Uncoded 03/02/25 10:38) Unknown losartan Adverse Reaction (Intermediate, Uncoded 03/02/25 10:38) hyperkalemia Medication List - Last Reconciled 03/03/25 by LYNNE Louis amlodipine 2.5 mg PO DAILY amoxicillin 1,000 mg PO BID carvedilol 3.125 mg PO BID coenzyme Q10 (Co Q-10) 100 mg PO DAILY dorzolamide 2% drps ophthalmic (eye) Eliquis (apixaban) 5 mg PO BID NS furosemide (Lasix) 20 mg PO QAM PRN gabapentin 300 mg PO DAILY rosuvastatin 10 mg PO DAILY zolpidem 5 mg PO BEDTIME PRN Tobacco use date assessed: 03/02/25 Dental Screening Dental Screen Date: 03/02/25 Did you have a dental visit in the last 12 months?: Yes Did you have a dental problem in the last 6 months where you did not have access to dental care?: No Was dental information given to patient?: Patient has dentist HPI HPI Comments History of Present Illness Details This is an 89-year-old female with a past medical history of invasive ductal carcinoma of the right breast, bilateral PE and left calf DVT anticoagulated on apixaban, hypertension, hyperlipidemia, CKD stage IIIB, peripheral neuropathy, insomnia and glaucoma presenting for follow up. The patient broke her proximal right clavicle in July. CT demonstrated fracture and small hematoma but no evidence of osteolytic lesions ( ER note reviewed). She has a remote history of breast cancer. This was after a file cabinet fell on top of arm. There was no loss of consciousness. Patient followed by [facility]. She did physical therapy. She had a bone density exam that was consistent with osteopenia. Hypertension-she reduced amlodipine to 2.5 mg due to peripheral edema. She is taking carvedilol 3.125 mg twice daily. Hypertension is controlled. Patient had an echocardiogram done at [facility] in June of 2023 which demonstrated a normal ejection fraction of 60-65% and indeterminate diastolic function. She takes Lasix 20 mg daily which has significantly improved her lower extremity edema. We reviewed her lab work again today which showed elevated PTH, calcium normalized, normal vitamin-D and decreased renal function. We discussed this recently on the phone. She has been referred to endocrinology at [facility], and I provided her with the contact number to call and schedule the appointment. 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 Rushing. She is to continue anticoagulation indefinitely. She had right breast cancer in 2018. No known recurrence. Saw Dr. Rushing for this. She has annual mammograms with [facility] on [address]. She has an appointment in March for the mammogram. Insomnia was treated with trazodone, and she did not tolerate side effects. She does well on Ambien. She sleeps 8-9 hours per night. No side effects to this medication. She has an appointment with Dr. Kamala Hoang on 04/27/2025 for evaluation of hemorrhoids. She reported they were causing intermittent pain, and she says today that she sometimes sees a pinkish tinge on the tissue paper after wiping. She denies blood in the stool. She is prone to constipation, but this is not consistent. If she uses preparation H her symptoms subside temporarily. Unknown last colonoscopy. Denies abdominal pain, unexplained weight loss, blood in stools, diarrhea, nausea, vomiting. One of her liver enzymes was mildly elevated, and she has mild macrocytosis. She got her flu shot at the pharmacy on Sunday. ROS: Constitutional: No unexplained weight loss, fever, chills, fatigue or night sweats. Eyes: No vision changes, blurry vision, double vision. Respiratory: No shortness of breath, cough or sputum production. Cardiovascular: No chest pain, chest pressure or chest discomfort. No palpitations. Gastrointestinal: No anorexia, nausea, vomiting or diarrhea. No abdominal pain or blood in stool. Genitourinary: No dysuria, hematuria, urinary frequency. Neurologic: No headache, dizziness, syncope, unilateral weakness, ataxia, numbness or tingling in the extremities. Physical exam: Constitutional: Alert, in no distress. Head: Normocephalic. Neck: Supple, Full range of motion. No lymphadenopathy. No palpable thyroid masses. Respiratory: Clear to auscultation. Cardiovascular: S1 S2 regular. No murmurs. Extremities: No clubbing or cyanosis. Trace bilateral lower extremity edema. Bruising on left lower chiu. Abdomen: Soft, nontender, normoactive bowel sounds, no rebound or guarding, no palpable masses Rectal: Patient declined examination. [facility] Medical History (Updated 03/03/25 @ 17:01 by LYNNE Louis) Liver enzyme elevation Macrocytic High serum parathyroid hormone (PTH) Lower extremity edema Bright red blood per rectum Hemorrhoids Right clavicle fracture Bilateral lower extremity edema Serum calcium elevated Hyperkalemia Tachycardia Transient cerebral ischemia Restless legs Postherpetic neuralgia Osteopenia Osteoarthritis Multiple nodules of lung Mitral valve regurgitation Lumbar radiculopathy Insomnia HTN (hypertension) Hyperlipidemia History of DVT of lower extremity Glaucoma Dust allergy Chronic kidney disease, stage 3b Breast cancer, right Atrial septal aneurysm Arthritis Acute pulmonary embolism Surgical History (Updated 02/28/24 @ 11:38 by LYNNE Louis) History of cataract surgery History of hysterectomy History of tonsillectomy History of left hip replacement History of left knee replacement History of lumpectomy of right breast History of right hip replacement History of right knee joint replacement Social History (Updated 03/02/25 @ 10:40 by Nikki Mcgowan CMA) Housing: House Alcohol intake: current Patient Tobacco Use Status: Never used Tobacco e-Cigarette/Vaping Use: Never Used Second Hand Smoke Exposure: No service: No Current occupational status: retired Current occupational exposures/hazards: No Cognitive needs: No Hearing needs: No Vision needs: Yes Questionnaire Thrive Questionnaire Date Thrive assessed: 10/16/24 I am a: Patient What is your living situation today?: I have a steady place to live Within the past 12 months, did the food you bought not last and you didn't have the money to get more?: Never true Within the past 12 months, did you worry whether your food would run out before you got money to buy more?: Never true Do you have trouble paying for medicines?: No Do you have trouble getting transportation to medical appointments?: No Do you have trouble paying your heating and electricity bill?: I choose not to answer this question Do you have trouble taking care of your child, family member or friend?: I choose not to answer this question Do you have trouble with day-to-day activities such as bathing, preparing meals, shopping, managing finances, etc.?: No Are you currently unemployed and looking for a job?: No Are you interested in more education?: No Please select the resources that you would like help with: None Currently or been in a relationship where the following occur: I choose not to answer THRIVE Score: 0 SAÚL-7 AMB Questionnaire SAÚL-7 Date SAÚL - 7 assessed: 02/28/24 Source: Developed by Drs. Israel Perez, Lexi Garcia, Tyrone Valentine and colleagues, with an educational eros from [employer]. Physical exam (Primary Care) Vital Signs: Last Vital Signs Temp 97.2 F 03/02/25 10:40 Pulse 86 03/02/25 10:40 Resp 16 03/02/25 10:40 BP 118/70 03/02/25 10:40 Pulse Ox 97 03/02/25 10:40 Oxygen Delivery Method Room Air 03/02/25 10:40 BMI result Body Mass Index 22.9 Tobacco/Smoking Status: Tobacco use Status Tobacco use date assessed 03/02/25 03/02/25 10:42 Patient Tobacco Use Status Never used Tobacco 03/02/25 10:40 e-Cigarette/Vaping Use Never Used 03/02/25 10:40 Thrive Assessment: Date of Thrive Assessment Date Thrive assessed 10/16/24 03/02/25 10:38 Currently or been in a relationship where the following occur: I choose not to answer Results Reviewed Results Reviewed: Laboratory Tests 03/31/24 02/12/25 15:36 09:58 WBC 6.2 RBC 4.35 Hgb 14.3 Hct 43.9 MCV 100.9 H Plt Count 201 Creatinine 1.06 Estimated GFR 49 Calcium 9.2 D AST 32 H ALT 20 Triglycerides 141 Cholesterol 174 LDL Cholesterol, Calc 89 HDL Cholesterol 57 1,25 Dihydroxy Vit D 59 1,25 Dihydroxy Vit D2 <8 1,25 Dihydroxy Vit D3 59 PTH Intact 122.1 H 105.4 H Coding Level of Care Code Est Pt Level 4 (21479) Complex EM visit Add On G2211 Diagnoses Hemorrhoids, unspecified hemorrhoid type K64.9 Hemorrhoid type: unspecified History of pulmonary embolism Z86.711 Malignant neoplasm of right female breast, unspecified estrogen receptor status, unspecified site of breast C50.911 Breast location: unspecified site of breast Estrogen receptor status: unspecified Patient sex: female Primary hypertension I10 Hypertension type: primary hypertension Osteopenia of multiple sites M85.89 Osteopenia location: multiple sites Serum calcium elevated E83.52 Primary insomnia F51.01 Insomnia type: primary Lower extremity edema R60.0 High serum parathyroid hormone (PTH) R79.89 Macrocytic D75.89 Liver enzyme elevation R74.8 Assessment & Plan Assessment & Plan (1) Hemorrhoids: Code(s): K64.9 - Unspecified hemorrhoids Category: Medical Qualifiers: Hemorrhoid type: unspecified Qualified Code(s): K64.9 - Unspecified hemorrhoids Plan: We discussed that hemorrhoids can be a source of bleeding, however I can not confirm this without examination unexplained other potential causes of symptoms including fissures and malignancy. She declines exam again today. She will reconsider if she has worsening symptoms. She has an appointment scheduled with Colorectal surgery on 04/27/2025. Recheck CBC to ensure no anemia. Recommended increasing fiber in her diet and trying a Benefiber supplement. Make sure she is drinking enough fluids. (2) History of pulmonary embolism: Code(s): Z86.711 - Personal history of pulmonary embolism Category: Medical Plan: On anticoagulation indefinitely. (3) Breast cancer, right: Comment: Invasive ductal carcinoma Code(s): C50.911 - Malignant neoplasm of unspecified site of right female breast Category: Medical Qualifiers: Breast location: unspecified site of breast Estrogen receptor status: unspecified Patient sex: female Qualified Code(s): C50.911 - Malignant neoplasm of unspecified site of right female breast Plan: Continue annual mammograms. (4) HTN (hypertension): Code(s): I10 - Essential (primary) hypertension Category: Medical Qualifiers: Hypertension type: primary hypertension Qualified Code(s): I10 - Essential (primary) hypertension Plan: Controlled. Continue current regimen. (5) Osteopenia: Code(s): M85.80 - Other specified disorders of bone density and structure, unspecified site Category: Medical Qualifiers: Osteopenia location: multiple sites Qualified Code(s): M85.89 - Other specified disorders of bone density and structure, multiple sites Plan: Recommended getting a total of 1200 mg of calcium from dietary sources in supplements and 1000 IU of vitamin D3 daily. Weightbearing exercise encouraged. Avoid smoking. (6) Serum calcium elevated: Code(s): E83.52 - Hypercalcemia Category: Medical Plan: Resolved. (7) Insomnia: Code(s): G47.00 - Insomnia, unspecified Category: Medical Qualifiers: Insomnia type: primary Qualified Code(s): F51.01 - Primary insomnia Plan: Continue Zolpidem. (8) Lower extremity edema: Code(s): R60.0 - Localized edema Category: Medical Plan: Continue Lasix 20 mg daily. Monitor renal function and electrolytes. (9) High serum parathyroid hormone (PTH): Code(s): R79.89 - Other specified abnormal findings of blood chemistry Category: Medical Plan: Reviewed differential with the patient for high PTH. Calcium was previously elevated but normalized. Vitamin-D is normal. She has mild renal dysfunction which has improved. She is going to set up the appointment with [facility] endocrinology for evaluation. (10) Macrocytic: Code(s): D75.89 - Other specified diseases of blood and blood-forming organs Category: Medical Plan: Check B12 and folate. (11) Liver enzyme elevation: Code(s): R74.8 - Abnormal levels of other serum enzymes Category: Medical Plan: Repeat LFTs and check screening tests for hepatitis. Plan Follow up for Medicare wellness visit in 3 months.
[2025-03-02 10:40] VITALS: BP 118/70; PULSE 86; RESP 16; TEMP 36.2; O2SAT 97; BMI 22.9
--- OUTSIDE RECORDS SUMMARY | 2025-03-02 11:57 | XMS_ITS | Clinical Summary ---
Author Organization [facility] Address [address] [place] [address] Care Team Providers Care Sanitation Worker Cleaning Machinery Name Role Phone Feli Lind Primary Care Provider [phone] Medications amLODIPine (NORVASC) 5 mg tabletIndication s:refills [...] Type Department Care Team Description 12/09/2024 Telephone [facility] [address] [facility] [address] [place] [address] Gustavo Renee MD from Last [...] age to complete this topic Care Teams Sanitation Worker Cleaning Machinery Relationship Specialty Start Date End Date Feli Lind PA [address] [place] [id number] PCP - General Physician Packaging Inspector 12/09/24
--- OUTSIDE RECORDS SUMMARY | 2025-03-02 11:57 | XMS_ITS | Data Portability ---
Author Organization [facility] Pain Managem ent, PAIN OFFICE Address [address] [facility] [address] [place] [address] Care Team Providers Care Firer Boiler Name Role Phone MALACHI WAHL Referring Provider CAITY CASTRO Primary Care Provider [phone] Assessment Encounter Date Assessment Date Assessment LastModified by Organization Details LastModified Time 09/18/2023 09/18/2023 Oxana Newell is a 88 [...] three months. [email or web address] Not available 07/30/2024 11:25:12 12/03/2024 12/03/2024 Oxana Newell is a 89 year old [...] for a repeat injection in three months. [email or web address] Not available 12/03/2024 10:25:23 Plan of Treatment Reminders Order Date Submit Date Provider Last Modified By Organization Details Last Modified Time Details Appointments PROCEDURE 2024 01:00P M Cara bhatia MD Not available Not available Not available Lab None recorded. Referral None recorded. Procedures None recorded. Surgeries None recorded. Imaging None recorded. Medication Orders None recorded. Patient TargetsNo targets recorded. Patient Instructions Encounter Date Encounter Id Patient Instructions Last Modified By Organization Details Last Modified Time 09/18/2023 [id number] She was advised against bed rest lasting longer than four days and to continue activities as tolerated. [email or web address] Not available 09/18/2023 10:01:16 01/02/2024 [id number] She was advised against bed rest lasting longer than four days and to continue activities as tolerated. [email or web address] Not available 01/02/2024 09:04:59 Reason for Referral None Reported. Problems Name Problem SNOMED Code Status Onset Date Resolution Date Notes Provider Name and Address Organization Details Recorded Time Lumbosacral radiculopathy 6682553 Active Cara bhatia MD [address] [facility] , [place] [address], [place], [address], [place] [facility] 0 09:28:16 Degeneration of lumbar intervertebral disc 86138557 Active Cara bhatia MD [address] [facility] [place] [address], [place], [address], [place] [facility] 0 09:28:26 Problem Notes None recorded. Procedures Surgical History Date Name Laterality Status Provider Name and Address Organization Details Recorded Time 12/04/19 25 Lumbar Epidural steroid injection under fluoroscopic guidance completed Cara Mooney MD [address] [facility] , [place] [address], [place], [address], [place] [facility] 12/03/2024 10:26:38 07/31/19 25 Lumbar Epidural steroid injection under fluoroscopic guidance completed Cara Mooney MD [address] [facility] , [place] [address], [place], [address], [place] [facility] 07/30/2024 11:25:59 04/15/20 24 Lumbar Epidural steroid injection under fluoroscopic guidance completed Cara Mooney MD [email or web address] , [address], [place], [address], [place] [facility] 04/15/2024 16:26:50 01/02/20 24 Lumbar Epidural steroid injection under fluoroscopic guidance completed Cara Mooney MD [email or web address] , [address], [place], [address], [place] [facility] 01/02/2024 09:05:37 09/18/19 24 Lumbar Epidural steroid injection under fluoroscopic guidance completed Cara Mooney MD [address] [facility] , [address], [place], [address], [place] [facility] 09/18/2023 10:02:38 11/09/19 23 Lumbar Epidural steroid injection under fluoroscopic guidance completed Cara Mooney MD [email or web address] , [address], [place], [address], [place] [facility] 11/08/2022 10:20:12 07/19/19 23 Lumbar Epidural steroid injection under fluoroscopic guidance completed Cara Mooney MD [address] [facility] [address] [facility] , [address], [place], [address], [place] [facility] 07/19/2022 14:49:08 03/21/20 22 Lumbar Epidural steroid injection under fluoroscopic guidance completed Cara Mooney MD [address] [facility] , [address], [place], [address], [place] [facility] 03/21/2022 10:21:07 11/24/19 22 Lumbar Epidural steroid injection under fluoroscopic guidance completed Cara Mooney MD [address] [facility] [address] [facility] , [address], [place], [address], [place] [facility] 11/23/2021 14:34:54 01/20/20 21 Lumbar Epidural steroid injection under fluoroscopic guidance completed Cara Mooney MD [address] [facility] , [address], [place], [address], [place] [facility] 01/19/2021 10:27:26 10/20/19 21 Lumbar Epidural steroid injection under fluoroscopic guidance completed Cara Mooney MD [email or web address] , [address], [place], [address], [place] [facility] 10/19/2020 09:22:26 07/20/19 21 Lumbar Epidural steroid injection under fluoroscopic guidance completed Cara Mooney MD [address] [facility] [facility] , [address], [place], [address], [place] [facility] 07/20/2020 09:23:51 04/20/20 20 Lumbar Epidural steroid injection under fluoroscopic guidance completed Cara Mooney MD [address] [facility] , [address], [place], [address], [place] [facility] 04/20/2020 09:29:26 01/05/20 20 Lumbar Epidural steroid injection under fluoroscopic guidance completed Cara Mooney MD [address] [facility] , [address], [place], [address], [place] [facility] 01/05/2020 13:49:27 08/12/19 20 Lumbar Epidural steroid injection under fluoroscopic guidance completed Cara Mooney MD [address] [facility] , [address], [place], [address], [place] [facility] 08/12/2019 16:25:59 total replacement of hip completed Cara Mooney MD [address] [facility] , [address], [place], [address], [place] [facility] 07/14/2019 10:15:17 total knee replacement completed Cara Mooney MD [address] [facility] , [address], [place], [address], [place] [facility] 07/14/2019 10:15:44 hysterectomy completed Cara Mooney MD [address] [facility] , [address], [place], [address], [place] [facility] 07/14/2019 10:16:09 lumpectomy of right breast completed Cara Mooney MD [address] [facility] , [address], [place], [address], [place] [facility] 07/14/2019 10:16:19 Imaging Results None recorded. Procedure Notes None recorded. Medical Equipment None Reported. Allergies Allergen ID Allergen Name Allergen Category Reaction Reaction Severity Criticality Documentation Date Start Date Code Code System Note Provider Name and Address Organization Details Recorded Time 32200 Bactrim medicatio n Not available Not available Not available 07/14/2019 24170 9 RxNorm Cara bhatia MD [address] [facility] , [address], [facility] [place], [address], [place] [facility] 0 10:12:20 84796 Fosamax medicatio n Not available Not available Not available 07/14/2019 50240 5 RxNorm Cara bhatia MD [address] [facility] , [address], [facility] [place], [address], [place] [facility] 0 10:12:32 38490 trazodone medicatio n Not available Not available Not available 07/14/2019 39662 RxNorm Cara bhatia MD [address] [facility] , [address], [facility] [place], [address], [place] [facility] [...] Available gabapentin 300 mg capsule TAKE 1 CAPSULE BY MOUTH DAILY active Not Available Not [...] TO AFFECTED AREA TWICE A DAY NEEDED active Not Available Not Available No t Available dorzolamide 2 % eye drops 09/12 completed Not Available Not Available Not Available oxycodone 5 mg tablet TAKE 1 TABLET BY MOUTH EVERY 6 HOURS FOR 7 DAYS NEEDED FOR PAIN active Not Available Not Available No t Available Phos-NaK 280 mg-160 mg-250 mg oral powder packet TAKE 1 PACKET TWICE DAILY FOR 2 DAYS DIRECTED 11/08 completed Not Available Not Available Not Available Restasis 0.05 % eye drops in a dropperette active Not Available Not Available Not Available rosuvastati n 5 mg tablet 11/08 completed Not Available Not Available Not Available rosuvastati n 10 mg tablet TAKE 1 TABLET DAILY active Not Available Not Available No [...] t Available Vitals Date Recorded Body height Pain severity - 0-10 verbal numeric rating [Score] - Reported Body mass index (BMI) Body weight Heart rate Oxygen saturation Oxygen saturation in Arterial blood by Pulse oximetry Systolic And Diastolic Provider Name and Address Organization Details Last Updated DateTime 5 170.18 cm 5 24.6 kg/m2 85060 g 63 /min 99 % 99 % 144/73 mm[Hg] Jane Fox [facility] Pain Management 5 11:07:54 Date Recorded Body height Oxygen saturation Oxygen saturation in Arterial blood by Pulse oximetry Heart rate Systolic And Diastolic Provider Name and Address Organization Details Last Updated DateTime 4 170.18 cm 97 % 97 % 53 /min 146/61 mm[Hg] Arabella Randhawa [facility] Pain Management 4 09:39:33 Date Recorded Body height Heart rate Oxygen saturation Oxygen saturation in Arterial blood by Pulse oximetry Systolic And Diastolic Provider Name and Address Organization Details Last Updated DateTime 5 170.18 cm 60 /min 98 % 98 % 138/67 mm[Hg] Ellie bermeo [facility] Pain Management 5 09:59:04 Date Recorded Body height Heart rate Oxygen saturation Oxygen saturation in Arterial blood by Pulse oximetry Systolic And Diastolic Provider Name and Address Organization Details Last Updated DateTime 4 170.18 cm 56 /min 97 % 97 % 167/67 mm[Hg] Cara bhatia MD [address] [facility] [facility] , [address], [place], [address], [facility] Pain Management 4 08:36:16 Date Recorded Body height Heart rate Oxygen saturation Oxygen saturation in Arterial blood by Pulse oximetry Systolic And Diastolic Provider Name and Address Organization Details Last Updated DateTime 4 170.18 cm 61 /min 98 % 98 % 142/55 mm[Hg] Arabella Randhawa [facility] Pain Management 4 10:36:20 Social History None [...] Neuropathy/Neuralgia N Kidney Stones N Hyperthyroidism N Hypothyroidism N Depression N COPD N Hepatitis C N Migrane N Anxiety Disorder N Diabetes N Arthritis Y Seizures/Epilepsy N Hyperlipidemia N Cancer Y Stroke N Asthma N HIV/AIDS N Headache N Bipolar Disorder N High Cholesterol Y GERD/Reflux N Liver Disease N Pulmonary Embolism N Fibromyalgia N Irritable Bowel Syndrome N Hypertension Y Osteoporosis N Kidney Disease N Gynecological HistoryNo gynecological history recorded. Obstetrics History GPAL:G 0 P 0 0 0 0 Past Encounters Encounter ID Performer Location Encounter Start Date Encounter Closed Date Diagnosis/Indication Diagnosis SNOMED-CT Code Diagnosis ICD10 Code Diagnosis IMO Codes Diagnosis Note [id number] Craa Mooney MD PAIN OFFICE [address] [place] [address] 07/14/2019 09:19:11 07/14/2019 13:40:51 Degeneration of lumbar intervertebral disc 39171727 M51.36 Lumbosacra l radiculopathy 7359317 M54.17 [id number] Cara Mooney MD PAIN OFFICE [address] [place] [address] 07/21/2019 09:20:10 07/21/2019 14:52:24 Degeneration of lumbar intervertebral disc 04660459 M51.36 Lumbosacra l radiculopathy 0627913 M54.17 [id number] Cara Mooney MD [facility] PA[facility] OFFICE [address] [place] [address] 08/12/2019 10:22:42 08/12/2019 16:29:03 Degeneration of lumbar intervertebral disc 13906496 M51.36 Lumbosacra l radiculopathy 9801738 M54.17 [id number] Cara Mooney MD PAIN OFFICE [address] [place] [address] 10/13/2019 10:04:03 10/13/2019 10:25:30 Degeneration of lumbar intervertebral disc 10907757 M51.36 Lumbosacra l radiculopathy 5422022 M54.17 [id number] Cara Mooney MD PAIN OFFICE [address] [place] [address] 01/05/2020 13:28:43 01/05/2020 13:52:35 Degeneration of lumbar intervertebral disc 28179113 M51.36 Lumbosacra l radiculopathy 5788101 M54.17 [id number] Cara Mooney MD PAIN OFFICE [address] [place] [address] 04/20/2020 08:59:03 04/20/2020 11:43:00 Degeneration of lumbar intervertebral disc 12140233 M51.36 Lumbosacra l radiculopathy 9745460 M54.17 [id number] Cara Mooney MD PAIN OFFICE [address] [place] [address] 07/20/2020 08:55:50 07/20/2020 10:24:13 Degeneration of lumbar intervertebral disc 98904392 M51.36 Lumbosacra l radiculopathy 4936095 M54.17 [id number] Cara Mooney MD PAIN OFFICE [address] [place] [address] 10/19/2020 08:57:57 10/19/2020 09:25:07 Degeneration of lumbar intervertebral disc 21897000 M51.36 Lumbosacra l radiculopathy 6070197 M54.17 [id number] Cara Mooney MD [facility] PAIN OFFICE [address] [place] [address] 01/19/2021 09:56:35 01/19/2021 10:50:52 Degeneration of lumbar intervertebral disc 80810331 M51.36 Lumbosacra l radiculopathy 5618335 M54.17 [id number] Cara Mooney MD PAIN OFFICE [address] [place] [address] 08/31/2021 14:21:19 08/31/2021 15:12:15 Degeneration of lumbar intervertebral disc 24532033 M51.36 Lumbosacra l radiculopathy 6867878 M54.17 [id number] Cara Mooney MD [facility] PAIN OFFICE [address] [place] [address] 11/23/2021 13:55:06 11/24/2021 08:57:41 Degeneration of lumbar intervertebral disc 51329210 M51.36 Lumbosacra l radiculopathy 4541175 M54.17 [id number] Cara Mooney MD [facility] PAIN OFFICE [address] [place] [address] 03/21/2022 09:55:29 03/21/2022 10:23:58 Degeneration of lumbar intervertebral disc 27602262 M51.36 Lumbosacra l radiculopathy 2275636 M54.17 [id number] Cara Mooney MD [facility] PAIN OFFICE [address] [address] [facility] [place] [address] 07/19/2022 13:58:57 07/19/2022 15:12:23 Degeneration of lumbar intervertebral disc 81766116 M51.36 Lumbosacra l radiculopathy 4347205 M54.17 [id number] Cara Mooney MD [facility] PAIN OFFICE [address] [facility] [place] [address] 11/08/2022 09:53:28 11/08/2022 11:23:18 Degeneration of lumbar intervertebral disc 14534466 M51.36 Lumbosacra l radiculopathy 3026702 M54.17 [id number] Cara Mooney MD [facility] PAIN OFFICE [address] [facility] [place] [address] 09/13/2023 13:28:01 09/13/2023 14:37:48 Lumbosacral radiculopathy 8265147 M54.17 Degenerati on of lumbar intervertebral disc 49555994 M51.36 [id number] Cara Mooney MD [facility] PAIN OFF[facility] [address] [place] [address] 09/18/2023 09:14:19 09/18/2023 14:21:00 Degeneration of lumbar intervertebral disc 07779967 M51.36 Lumbosacra l radiculopathy 1587395 M54.17 [id number] Cara Mooney MD PAIN OFFICE [address] [place] [address] 01/02/2024 08:22:10 01/02/2024 16:15:42 Lumbosacral radiculopathy 5861192 M54.17 Degenerati on of lumbar intervertebral disc 35106078 M51.36 [id number] Cara Mooney MD PAIN OFFICE [address] [place] [address] 04/15/2024 10:09:48 04/15/2024 16:43:12 Lumbosacral radiculopathy 4545023 M54.17 Degenerati on of lumbar intervertebral disc 08240987 M51.362 [id number] Cara Mooney MD [facility] PA[facility] OFFICE [address] [place] [address] 07/30/2024 10:40:34 07/30/2024 14:45:28 Lumbosacral radiculopathy 0143437 M54.17 Degenerati on of lumbar intervertebral disc 12103928 M51.362 [id number] Cara Mooney MD [facility] PA[facility] OFF[facility] [address] [facility] [place] [address] 12/03/2024 09:51:35 12/03/2024 11:02:05 Degeneration of lumbar intervertebral disc 96883602 M51.362 Lumbosacra l radiculopathy 0248768 M54.17 Health Concerns Section Related Observation LastModified by Organization Detai ls LastModified Time None Recorded Concern Status LastModified by Organization Details LastModified Time None Recorded Advance Directives Directive None Recorded Payers Insurance Date Sequence Insurance Name Policy Number Policy Shanks Covered Member ID Shanks Member ID Guarantor Name 11/30/2024 1 [place] [employer] Oxana Newell [id number] Oxana Newell 04/15/2024 2 [place] Oxana Bocanegra 11/30/2024 2 [place] [id number] Oxana Newell [id number] Oxana Newell Notes Date Note Type Note Provider Name and Address Organization Details Recorded Time 09/18/2023 text/html She is here for a lumbar epidural steroid injection under fluoroscopic guidance. She has stopped eliquis for three days prior to the procedure Cara Mooney MD [address] [facility] [address], [place], [address], [place] [facility] 09/18/2023 15:59:09 01/02/2024 text/html She is here for a lumbar epidural steroid injection under fluoroscopic guidance. She has stopped eliquis for three days prior to the procedure Cara Mooney MD [address] [facility] , [address], [place], [address], [place] [facility] 01/02/2024 16:31:06 04/15/2024 text/html She is here for a lumbar epidural steroid injection under fluoroscopic guidance. She has stopped eliquis for three days prior to the procedure Cara Mooney MD [address] [facility] , [address], [place], [address], [place] [facility] 04/15/2024 16:50:05 07/30/2024 text/html She is here for a lumbar epidural steroid injection under fluoroscopic guidance. She has stopped eliquis for three days prior to the procedure Cara Mooney MD [address] [facility] , [address], [place], [address], [place] [facility] 07/30/2024 14:53:52 12/03/2024 text/html She is here for a lumbar epidural steroid injection under fluoroscopic guidance. She has stopped eliquis for three days prior to the procedure Cara Mooney MD [address] [facility] [address], [place], [address], [place] [facility] 12/03/2024 16:17:45 OBGyn Episode No OBEpisode recorded.
== END 2025-03-02 11:06 | disposition home or self-care (01) ==
LOC: HO.HMCFM 10:17
PROVIDERS: PCP Physician Assistant Medical; Visit Provider Physician Assistant Medical
DX: K64.9 Unspecified hemorrhoids (principal); Z86.711 Personal history of pulmonary embolism; C50.911 Malignant neoplasm of unspecified site of right female breast; I10 Essential (primary) hypertension; M85.89 Other specified disorders of bone density and structure, multiple sites; E83.52 Hypercalcemia; F51.01 Primary insomnia; R60.0 Localized edema; R79.89 Other specified abnormal findings of blood chemistry; D75.89 Other specified diseases of blood and blood-forming organs; R74.8 Abnormal levels of other serum enzymes